=== PATIENT | female | born 1985 | race Caucasian/White ===

== ENCOUNTER 2022-12-15 20:38 | Outpatient (REF) | payer OTHER, SELFPAY ==
[2022-12-21 10:10] LABS: Age Gdln ACOG Testing Note (.); HPV Aptima Negative (Negative); IGP, Aptima HPV, rfx 16/18,45 Note (.)
== END 2022-12-15 20:39 | disposition home or self-care (01) ==
LOC: LAB 20:38
PROVIDERS: Visit Provider Physician Assistant
DX: Z01.419 Encounter for gynecological examination (general) (routine) without abnormal findings (principal)
CPT/HCPCS: 87624; G0145

== ENCOUNTER 2023-12-20 20:45 | Outpatient (REF) | payer OTHER, SELFPAY | END 2023-12-20 20:46 | disposition home or self-care (01) | LOC: LAB 20:45 | PROVIDERS: Visit Provider Obstetrics & Gynecology | DX: Z01.419 Encounter for gynecological examination (general) (routine) without abnormal findings (principal) | CPT/HCPCS: 87624; 88175 ==

== ENCOUNTER 2024-12-21 12:32 | Outpatient (REF) | payer OTHER, SELFPAY ==
--- OUTSIDE RECORDS SUMMARY | 2024-12-21 12:35 | XMS_ITS | Clinical Summary ---
Author Organization [facility] Address [address] [place] [address] Care Team Providers Care Vp Treasurer Name Role Phone Mamie Marina MD Primary Care Provider [phone] Allergies No known active allergies Medications NexIUM [address] capsule 20 mg. 3 Active levothyroxine (Synthroid, Levoxyl) 25 MCG tablet Take 25 mcg by mouth in the morning. 4 Active doxycycline (Doryx) 100 MG EC tabletIndications: Well woman exam with routine gynecological exam Take 1 tablet (100 mg) by mouth in the morning and 1 tablet (100 mg) before bedtime. Do all this for 14 days. Do not crush or chew. Take with a full glass of water and do not lie down for at least 30 minutes after. 28 tablet 5 01/05/20 25 Active Encounters Date Type Department Care Team Description 12/21/2024 10:00 AM EDT Office Visit [facility] [address] [place] [phone] Dutch Mishra, Well woman exam with routine gynecological exam; Pelvic pain in female 12/21/2024 Bamboo flowsheet [facility] [address] [place] [address] Dutch Mishra DO 12/20/2024 Travel from Last 3 Months Family History Medical History Relation Name Comments Growth hormone deficiency Brother yo bonifacio brother Asthma Child Diabetes Father Aden Hypertension Father Aden Diabetes Maternal Grandfather Rehan Diabetes Maternal Grandmother Anne Marie Hypertension Maternal Grandmother Anne Marie Allergic rhinitis Mother Diabetes Paternal Grandfather Rehan S Heart disease Paternal Grandfather Rehan S Relation Name Status Comments Brother 2 Child Father Aden Maternal Grandfather Rehan Maternal Grandmother Anne Marie Mother Paternal Grandfather Rehan S Social History Tobacco Use Types Packs/Day Years Used Date Smoking Tobacco: Never Smokeless Tobacco: Never Tobacco Cessation:Counseling Given: Not Answered Alcohol Use Standard Drinks/Week Comments Yes 1 (1 standard drink = 0.6 oz pur e alcohol) Caffeine intake: none Comments No Sex and Gender Information Value Date Recorded Sex Assigned at Female 12/14/2022 2:37 PM EDT Legal Sex Female 7:36 PM EDT Gender Identity Female 12/14/2022 2:37 PM EDT Sexual Orientation Not on file Last Filed Vital Signs Vital Sign Reading Time Taken Comments Blood Pressure 110/60 12/21/2024 10:13 AM EDT Pulse - - Temperature - - Respiratory Rate - - Oxygen Saturation - - Inhaled Oxygen Concentration - - Weight 79.7 kg (175 lb 12.8 oz) 025 10:13 AM EDT Height 152.4 cm (5') 12/20/2023 11:33 AM EDT Body Mass Index 34.33 12/20/2023 11:33 AM EDT Plan of Treatment Upcoming Encounters Date Type Department Care Team (Late st Contact Info) Description 12/24/2025 9:00 AM EDT Procedure Visit [facility] [address] [facility] [place] [phone] Dutch Mishra DO [address] [place] [address] Procedures Procedure Name Priority Date/Time Associated Diagnosis Comments POCT URINALYSIS DIPSTICK Routine 12/21/2024 10:22 AM EDT Pelvic pain in female POCT , URINE Routine 12/21/2024 10:21 AM EDT Pelvic pain in female from Last 3 Months Results * POCT urinalysis dipstick manually resulted (12/21/2024 10:22 AM EDT) Color, UA Yellow Clarity, UA Clear Glucose, UA Negative Negative - 2000(110) ++++ mg/dL Bilirubin, UA Negative Negative - 4(70) +++ mg/dL Ketones, UA Negative Negative - 160(16) ++++ mg/dL Spec Grav, UA 1.020 1 - 1.03 Blood, UA Negative Negative - 50 Marcelo/mcL pH, UA 6.5 5 - 9 Protein, UA Negative Negative - 1999(20) ++++ mg/dL Urobilinogen, UA 1.0 0.2 - 12 mg/dL Leukocytes, UA Negative Negative - 500+++ Supriya/mcL Nitrite, UA Negative Negative - Positive Urine 12/21/2024 10:2 2 AM EDT Dutch Tad DO POINT OF CARE TEST ENTER/EDIT OR DERABLES Final Result * POCT , urine manually resulted (12/21/2024 10:21 AM EDT) Preg Test, Ur Negative Negative Urine 12/21/2024 10:2 1 AM EDT Dutch Tad DO POINT OF CARE TEST ENTER/EDIT OR DERABLES Final Result from Last 3 Months Insurance [employer] Care Teams Vp Treasurer Relationship Specialty Start Date End Date Mamie Marina MD [address] [place] [phone] PCP - General Family Medicine 12/15/22
--- OUTSIDE RECORDS SUMMARY | 2024-12-21 12:35 | XMS_ITS | Encounter Summary ---
Author Organization [facility] Address [address] [place] [address] Care Team Providers Care Player Development Manager Name Role Phone Mamie Marina MD Primary Care Provider [phone] Encounter Details Date Type Department Care Team (Late Contact Info) Description 12/21/2024 Bamboo flowsheet [facility] [address] [place] [address] Dutch Mishra DO [address] [facility] [address] [place], [facility] Social History Tobacco Use Types Packs/Day Years Used Date Smoking Tobacco: Never Smokeless Tobacco: Never Alcohol Use Standard Drinks/Week Comments Yes 1 (1 standard drink = 0.6 oz pur e alcohol) Caffeine intake: none Comments No Sex and Gender Information Value Date Recorded Sex Assigned at Female 12/14/2022 2:37 PM EDT Legal Sex Female 7:36 PM EDT Gender Identity Female 12/14/2022 2:37 PM EDT Sexual Orientation Not on file documented as of this encounter Plan of Treatment Upcoming Encounters Date Type Department Care Team (Late Contact Info) Description 12/24/2025 9:00 AM EDT Procedure Visit [facility] [address] [place] [address] Dutch Mishra DO [address] [place], [facility] documented as of this encounter Visit Diagnoses Not on filedocumented in this encounter Care Teams Player Development Manager Relationship Specialty Start Date End Date Mamie Marina MD [address] [place] [address] PCP - General Family Medicine 12/15/22 documented as of this encounter
--- OUTSIDE RECORDS SUMMARY | 2024-12-21 12:35 | XMS_ITS | Encounter Summary ---
Author Organization [facility] Address [address] [place] [address] Care Team Providers Care Marine Meteorologist Name Role Phone Mamie Marina MD Primary Care Provider [phone] Encounter Details Date Type Department Care Team (Late Contact Info) Description 12/14/2022 Abstract [facility] [address] [facility] [address] Lanette Lazaro PA [address] [facility] [address] [place], [place] [address] Social History Tobacco Use Types Packs/Day Years Used Date Smoking Tobacco: Never Tobacco Cessation:Counseling Given: Not Answered Alcohol Use Standard Drinks/Week Comments Yes 1 (1 standard drink = 0.6 oz pur e alcohol) Caffeine intake: none Comments Unknown Sex and Gender Information Value Date Recorded Sex Assigned at Female 12/14/2022 2:37 PM EDT Legal Sex Female 7:36 PM EDT Gender Identity Female 12/14/2022 2:37 PM EDT Sexual Orientation Not on file documented as of this encounter Plan of Treatment Upcoming Encounters Date Type Department Care Team (Late Contact Info) Description 12/24/2025 9:00 AM EDT Procedure Visit [facility] [address] [place], [place] [address] [place] [address] Dutch Mishra DO [address] [facility] [place] [address] documented as of this encounter Visit Diagnoses Not on filedocumented in this encounter Care Teams Marine Meteorologist Relationship Specialty Start Date End Date Mamie Marina MD [address] [place] [phone] PCP - General Family Medicine 12/15/22 documented as of this encounter
--- OUTSIDE RECORDS SUMMARY | 2024-12-21 12:35 | XMS_ITS | Encounter Summary ---
[facility] Address [id number] [address] [place] [address] Care Team Providers Care Phys Therapist Name Role Phone Mamie Marina APRN-FOUNDRY PROCESS ENGINEER Primary Care Provider [phone] Encounter Details Date Type Department Care Team (Late st Contact Info) Description 04/11/2024 Orders Only [facility] [address] [place] [phone] Cira Bardales, SCIENCE INTERN Rubén's thyroiditis Social History Tobacco Use Types Packs/Day Years Used Date Smoking Tobacco: Never Smokeless Tobacco: Never Alcohol Use Standard Drinks/Week Comments Not Currently 0 (1 standard drink = 0.6 oz pur e alcohol) 1 beer month Childcare Answer Date Recorded Childcare Unknown 10/26/2018 Employment Answer Date Recorded Employment Unknown 10/26/2018 Purpose - Life Answer Date Recorded Purpose and direction in life Unknown Comments No Sex and Gender Information Value Date Recorded Sex Assigned at Not on file Legal Sex Female 11:31 AM EDT Gender Identity Not on file Sexual Orientation Not on file documented as of this encounter Plan of Treatment Upcoming Encounters Date Type Department Care Team (Late Contact Info) Description 02/20/2025 11:00 AM EDT Office Ultrasound [facility], A Department of [facility] [address] [place] [phone] Margaret Hector MD [address] [place] [address] documented as of this encounter Procedures Procedure Name Priority Date/Time Associated Diagnosis Comments T3, FREE Routine 04/04/2024 Rubén's thyroiditis TSH Routine 04/04/2024 Rubén's thyroiditis T4, FREE Routine 04/04/2024 Rubén's thyroiditis documented in this encounter Results * TSH (04/04/2024) External Tsh 0.925 0.270 - 4.200 SUNQUEST 04/04/2024 Margaret Hector MD LAB BLOOD ORDERABLES Fi nal Result Performing Organization Address [facility] de Phone Number SUNQUEST * T4, free (04/04/2024) External T4 Free 1.29 0.80 - 1.90 SUNQUEST 04/04/2024 us Margaret Hector MD LAB BLOOD ORDERABLES Fi nal Result Performing Organization Address [place]/[facility] Co de Phone Number SUNQUEST * T3, free (04/04/2024) External T3 Free 142 80 - 200 SUNQUEST 04/04/2024 us Margaret Hector MD LAB BLOOD ORDERABLES Fi nal Result Performing Organization Address [facility] Co de Phone Number SUNQUEST documented in this encounter Visit Diagnoses Diagnosis Rubén's thyroiditis Chronic lymphocytic thyroiditis documented in this encounter Additional Health Concerns Assessment Noted Time A Body Mass Index follow-up plan has been documented for the patient 03/24/2018 9:09 AM EST documented as of this encounter Care Teams Phys Therapist Relationship Specialty Start Date End Date Mamie Marina APRN-DANIEL [address] [place] [address] PCP - General Family Medicine 07/24/24 documented as of this encounter
--- OUTSIDE RECORDS SUMMARY | 2024-12-21 12:35 | XMS_ITS | Encounter Summary ---
Author Organization [facility] Address [address] [place] [address] Care Team Providers Care Bomb Technician Name Role Phone Mamie Marina MD Primary Care Provider [phone] Encounter Details Date Type Department Care Team (Latest Contact Info) Description 12/20/2024 Travel Social History Tobacco Use Types Packs/Day Years [...] 12/24/2025 9:00 AM EDT Procedure Visit [facility] [address] [facility] [place] [phone] Dutch Mishra DO [address] [place], [facility] documented as of this encounter Visit Diagnoses Not on filedocumented in this encounter Care Teams Bomb Technician Relationship Specialty Start Date End Date Mamie Marina MD [address] [place] [phone] PCP - General Family Medicine 12/15/22 documented as of this encounter
--- OUTSIDE RECORDS SUMMARY | 2024-12-21 12:36 | XMS_ITS | Clinical Summary ---
Author Organization [facility] Address [address] [place] [address] Care Team Providers Care Foam Charger Name Role Phone Unavailable Primary Care Provider Unavailabl e Allergies No known active allergies Medications esomeprazole (NEXIUM) 20 mg capsule Take 1 capsule by mouth every afternoon. 04/02/2023 Active Active Problems No known active problems Social History Tobacco Use Types Packs/Day Years Used Date Smoking Tobacco: Never Assessed Comments Unknown Sex and Gender Information Value Date Recorded Sex Assigned at Not on file Legal Sex Female 1:00 PM EDT Gender Identity Not on file Sexual Orientation Not on file Plan of Treatment Health Maintenance Due Date Last Done Comments Anxiety Screening 01/08/2004 Depression Screening 01/08/2004 HIV Screening 01/08/2004 Hepatitis C Screening 01/08/2004 Cervical Cancer Screening 2007 Influenza Vaccine (#1) 2025 9, 03/14/2019, 02/14/2019, Additional history exists DTaP,Tdap,Td Vaccine (7 - Td or Tdap) 03/06/2031 03/06/2021, 10/26/1997, 01/30/1991, Additional history exists Hepatitis B Vaccine Completed 11/28/1998, 12/18/1997, 11/15/1997 Insurance [facility] PPO
--- OUTSIDE RECORDS SUMMARY | 2024-12-21 12:36 | XMS_ITS | Clinical Summary ---
Author Organization [facility] Address [facility] [id number] [address] [place] [address] Care Team Providers Care Equipment Analyst Name Role Phone Mamie Marina APRN-STRATEGIC SOURCING CONSULTANT Primary Care Provider Allergies No known active allergies Medications levothyroxine (SYNTHROID, LEVOTHROID) 25 MCG tabletIndication s:Rubén's thyroiditis Take 1 tablet (25 mcg total) by mouth in the morning. 30 tablet 11 04/07/2024 Active pantoprazole (PROTONIX) 40 mg EC tablet Take 1 tablet (40 mg total) by mouth in the morning and at bedtime. 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 Acquired hypothyroidism 03/24/2018 Overview (03/24/2018): Takes synthroid Infertility, female 11/04/2017 Encounters Date Type Department Care Team Description 10/05/2024 Refill [facility] [address] [place] [phone] Hunter Narvaez DO from Last 3 Months Immunizations Immunization Administration Dates Next Due Rabies - Im Fibroblast Culture 03/06/2021 Rabies Immune Globulin 03/05/2021 Tdap 03/06/2021 Family History Medical History Relation Name Comments Diabetes Father Aden Varela High Cholesterol Father Aden Varela Diabetes Maternal Grandfather Rehan Ortega Diabetes Maternal Grandmother Anne Marie Bangura No Known Problems Mother Diabetes Paternal Grandfather Rehan Alfaroer Diabetes Paternal Grandmother Relation Name Status Comments Father Aden Varela Alive Maternal Grandfather Rehan Ortega Maternal Grandmother Anne Marie Bangura Mother Alive Paternal Grandfather Rhean Varela Paternal Grandmother Social History Tobacco Use Types Packs/Day Years Used Date Smoking Tobacco: Never Smokeless Tobacco: Never Tobacco Cessation:Counseling Given: Not Answered Alcohol Use Standard Drinks/Week Comments Not Currently 0 (1 standard drink = 0.6 oz pur e alcohol) 1 beer month Childcare Answer Date Recorded Childcare Unknown 10/26/2018 Employment Answer Date Recorded Employment Unknown 10/26/2018 Hunger Screening Answer Date Recorded Within the past 12 months we worried whether our food would run out before we got money to buy more. Never True 07/11/2024 Within the past 12 months th e food we bought just didn't last and we didn't have money to get more. Never True 07/11/2024 Purpose - Life Answer Date Recorded Purpose and direction in life Unknown Comments No Sex and Gender Information Value Date Recorded Sex Assigned at Not on file Legal Sex Female 11:31 AM EDT Gender Identity Not on file Sexual Orientation Not on file Last Filed Vital Signs Vital Sign Reading Time Taken Comments Blood Pressure 102/78 07/24/2024 10:43 AM EDT Pulse 73 07/24/2024 10:43 AM EDT Temperature 36.9 C (98.5 F) 07/24/2024 9:07 AM EDT Respiratory Rate 15 07/24/2024 10:43 AM EDT Oxygen Saturation 98% 07/24/2024 10:43 AM EDT Inhaled Oxygen Concentration - - Weight 81.6 kg (180 lb) 07/24/2024 9:07 AM EDT Height 152.4 cm (5') 07/24/2024 9:07 AM EDT Body Mass Index 35.15 07/24/2024 9:07 AM EDT Plan of Treatment Upcoming Encounters Date Type Department Care Team (Late st Contact Info) Description 02/20/2025 11:00 AM EDT Office Ultrasound [facility] A Department of [facility] [address] [phone] Margaret Hector MD [address] [facility] [place], [place] [id number] Health Maintenance Due Date Last Done Comments Depression Screening 1998 Adult BMI Follow Up Plan 01/08/2004 Pap Smear 03/09/2019 03/09/2016 Influenza Vaccine 01/15/2025 03/14/2019, , 02/18/2018 Adult BMI Screening 07/24/2025 07/24/2024 Tobacco Screening 07/24/2025 07/24/2024 DTaP,Tdap and Td Vaccines (7 - Td or Tdap) 03/06/2031 03/06/2021, 10/26/1997, 01/30/1991, Additional history exists Medical Devices Not on file Procedures Procedure Name Priority Date/Time Associated Diagnosis Comments HIGH RISK HPV W/[place] Routine 03/09/2016 12:00 PM EDT from Last 3 Months or Most Recently Relevant to Health Maintenance Results * High risk HPV w/austin (03/09/2016 12:00 PM EDT) Hpv specimen type ThinPrep 03/13/2016 6:32 PM EDT SUNQUEST Hpv 16 Negative Negative 03/18/2016 7:31 AM EDT [facility] Hpv 18 Negative Negative 03/18/2016 7:31 AM EDT [facility] Other high risk hpv Negative Negative 03/18/2016 7:31 AM EDT [facility] Comment: HPV types 31,33,35,39,45,52,56,58,59,66 and 68 DNA were undetectable. 03/09/2016 12:0 0 PM EDT 03/13/2016 6:31 PM EDT us Es L Chavo ELECTRIC MOTOR WINDERS ASSEMBLER-CNM LAB BLOOD ORDERABLES Final Result [facility] [address] [place] [address], [place] SUNQUEST from Last 3 Months or Most Recently Relevant to Health Maintenance Insurance [employer] Care Teams Equipment Analyst Relationship Specialty Start Date End Date Mamie Marina APRN-DANIEL [address] [place] [phone] PCP - General Family Medicine 07/24/24
[2024-12-25 19:07] LABS: Age Gdln ACOG Testing Note (.); IGP, Aptima HPV, rfx 16/18,45 Note (.)
== END 2024-12-21 12:33 | disposition home or self-care (01) ==
LOC: LAB 12:32
PROVIDERS: Visit Provider Obstetrics & Gynecology
DX: Z01.419 Encounter for gynecological examination (general) (routine) without abnormal findings (principal)
CPT/HCPCS: 87624; 88175

== ENCOUNTER 2025-04-20 12:30 | Outpatient (OUT) | payer OTHER, SELFPAY ==
--- OUTSIDE RECORDS SUMMARY | 2025-04-20 12:35 | XMS_ITS | Clinical Summary ---
Author Organization [facility] Address [address] [place] [address] Care Team Providers Care Pool Nurse Name Role Phone Mamie Marina MD Primary Care Provider [phone] Allergies No known active allergies Medications MedicationSigDispense QuantityRefillsLast FilledStart DateEnd DateStatus NexIUM [address] capsule 20 mg.12/08/2022ctive levothyroxine (Synthroid, Levoxyl) 25 MCG tablet Take 25 mcg by mouth in the morning.04/07/2024ctive Active Problems ProblemNoted DateDiagnosed DatePelvic pain in kozkuw1703/19/2025 Encounters DateTypeDepartmentCare UaizDbqkqygrmun07/20/2025 10:40 AM ESTConsult [facility]IS MAR[facility]Z [address] [place] [address] [place] [address] Dutch Mishra DO Pre-op examination; Pelvic pain in female; Thickened mmxmdsejfxf43/20/2025ambtorrey flowsheet [facility] [place] [address] Dutch Mishra DO 03/19/2025 3:50 [place] [address] Dutch Mishra DO Pelvic pain in sexcoa0503/19/2025ambtorrey flowsheet [facility] [place] [address] Dutch Mishra DO 03/06/2025 8:00 AM EDTAncillary Procedure [facility] [address] [facility] [place] [address] Pelvic pain in tpzlst1802/07/2025Telephone [facility] [address] [facility] [place] [phone] Dutch Mishra DO from Last 3 Months Family History Medical HistoryRelationNameCommentsGrowth hormone deficiencyBrotheryounger brotherAsthmaChildDiabetesFatherRonHypertensionFatherRonDiabetesMaternal GrandfatherBobDiabetesMaternal GrandmotherSandyHypertensionMaternal Grandmother SandyAllergic rhinitisMotherDiabetesPaternal GrandfatherBob SHeart disease Paternal GrandfatherBob DTxrhmyxvZcvlFxfeqlSqysbsfvZrzjxhs4WxomyAphhhvHgz Maternal GrandfatherBobMaternal GrandmotherSandyMotherPaternal GrandfatherBob S Social History Tobacco UseTypesPacks/DayYears UsedDateSmoking Tobacco: NeverSmokeless Tobacco: Never Tobacco Cessation:Counseling Given: Not Answered Alcohol UseStandard Drinks/WeekCommentsYes1 (1 standard drink = 0.6 oz pure alcohol)Caffeine intake: noneCommentsNoSex and Gender InformationValue Date RecordedSex Assigned at XjthhQoynia54/31/2023 2:37 PM EDTLegal SexFemale 07/29/2022 7:36 PM EDTGender XvcgghzzItbxxs32/31/2023 2:37 PM EDTSexual OrientationNot on file Last Filed Vital Signs Vital SignReadingTime TakenCommentsBlood Pockxqey780/6004/05/2025 10:37 AM EST Pulse--Temperature--Respiratory Rate--Oxygen Saturation--Inhaled Oxygen Concentration--Dkgqml38.2 kg (179 lb)04/05/2025 10:37 AM TZJRumvmd607.4 cm (5') 12/20/2023 11:33 AM EDTBody Mass Index34.9612/20/2023 11:33 AM EDT Plan of Treatment DateTypeDepartmentCare Team (Latest Contact Info)Wdmhwpybrnl30/29/2025 9:30 AM ESTOffice Visit [facility] [address] [facility] [place] [address] Maya Pablo, RADHA [address] [place] [address] 12/24/2025 9:00 AM EDTProcedure Visit [facility] [address] [facility] [place] [address] Dutch Mishra, DO [address] [place] [address] Procedures Procedure NamePriorityDate/TimeAssociated DiagnosisCommentsUS PELVIC COMPLETE W/ KPHoulllz18/21/2025 8:23 AM EDT Pelvic pain in female from Last 3 Months Results * US Pelvis w/ TV (03/06/2025 8:23 AM EDT)Anatomical RegionLateralityModality PelvisUltrasoundSpecimen (Source)Anatomical Location / LateralityCollection Method / VolumeCollection TimeReceived Time03/06/2025 2:37 PM EDT Impressions 03/06/2025 2:54 PM EDT 1. Endometrial thickening, polyp 2. Ovarian follicles. TRANSCRIBED BY: ? ELECTRONICALLY SIGNED BY: Alan Morgan MD Narrative 03/06/2025 2:54 PM EDT FINDINGS: Uterus ? 10.5 x 4.5 x 5.8 cm Endometrium ?15 mm (see below) Right ovary ?3.3 x 1.8 x 2.6 cm Left ovary ?3.6 x 2.3 x 2.9 cm Mild retroflexion of the uterine fundus. Normal myometrium. ??Unremarkable cervix. 15 mm hyperechogenic endometrium within the fundus surrounds a 6 x 11 x 13 mm hyperechogenic nodule, presumed polyp, no extension beyond the endometrium. Bilateral ovarian follicles/cysts, no pelvic fluid. Procedure Note Alan Morgan MD - 03/06/2025 FINDINGS: Uterus 10.5 x 4.5 x 5.8 cm Endometrium 15 mm (see below) Right ovary 3.3 x 1.8 x 2.6 cm Left ovary 3.6 x 2.3 x 2.9 cm Mild retroflexion of the uterine fundus. Normal myometrium. Unremarkablecervix. 15 mm hyperechogenic endometrium within the fundus surrounds a 6 x 11 x 13mm hyperechogenic nodule, presumed polyp, no extension beyond theendometrium. Bilateral ovarian follicles/cysts, no pelvic fluid. IMPRESSION: 1. Endometrial thickening, polyp 2. Ovarian follicles. TRANSCRIBED BY: ELECTRONICALLY SIGNED BY: Alan Morgan MD Authorizing ProviderResult TypeResult StatusCorey Tad DOIINSPIRE [facility] PROCEDURESFinal Result from Last 3 Months Insurance Care Teams Team MemberRelationshipSpecialtyStart DateEnd Date Mamie Marina MD [address] [place] [phone] PCP - GeneralFamily Medicine12/15/22
--- OUTSIDE RECORDS SUMMARY | 2025-04-20 12:35 | XMS_ITS | CCD ---
Author Organization [facility] Care Team Providers Care Employment Counselor Name Role Phone DR MT MISHRA Attending Unavailable TAD, DR AMOR Consulting Unavailable TAD, DR AMOR Primary Care Unavailable TAD, DR AMOR Admitting Unavailable Salas VP BIOLOGY-SUPERINTENDENT STEVEDORING, Mamie Primary Care Provider [phone] MARGARET GONZALEZ Attending Unavailab le SALAS, MAMIE Referring Unavailable SALAS, MAMIE Primary Care Unavailable JUDIE AMBROSIO Attending Unavailable SALAS, MAMIE Referring Unavailable SALAS, MAMIE Primary Care Unavailable Salas VP BIOLOGY-SUPERINTENDENT STEVEDORING, Mamie Primary Care Provider Mamie Marina MD Primary Care Provider LIZ CEJA Admitting Unavailable LIZ CEJA Attending Unavailable LIZ CEJA Referring Unavailable SALAS, MAMIE Primary Care Unavailable FELI EPSTEIN Referring Unavailable SALAS, MAMIE Primary Care Unavailable Salas CONVEYOR MAN-C, Mamie A Primary Care Unavailable Salas CONVEYOR MAN-C, Mamie A Primary Care Unavailable Salas CONVEYOR MAN-C, Mamie A Attending Unavailable Salas CONVEYOR MAN-C, Mamie A Primary Care Unavailable Salas CONVEYOR MAN-C, Mamie A Attending Unavailable Salas CONVEYOR MAN-C, Mamie A Attending Unavailable Salas CONVEYOR MAN-C, Mamie A Primary Care Unavailable MARGARET GONZALEZ Attending Unavailab le SALAS, MAMIE Referring Unavailable SALAS, MAMIE Primary Care Unavailable MARGARET GONZALEZ Referring Unavailab le SALAS, MAMIE Primary Care Unavailable Salas , Mamie Primary Care Provider [phone] MT MISHRA Attending Unavailable MT MISHRA Attending Unavailable Medications Current Medications MedicationDrug Class(es)DatesSig (Normalized)Sig (Original)doxycycline hyclate 100 mg delayed release oral tablet (4 sources)Tetracycline-class DrugStart: 12-21-2024 End: 46-81-4363bump 1 tablet by mouth in the morningdoxycycline (Doryx) 100 MG EC tablet Indications: Well woman exam with routine gynecological exam Take 1 tablet (100 mg) by mouth in the morning and 1 tablet (100 mg) before bedtime. Do all this for 14 days. Do not crush or chew. Take with a full glass of water and do not lie down for at least 30 minutes after. 28 tablet 12/21/2024 01/04/2025 Activeesomeprazole 20 mg delayed release oral capsule (8 sources)Proton Pump InhibitorStart: 56-91-4867HbeKSK [address] capsule 20 mg. 12/08/2022 Activelevothyroxine sodium 0.025 mg oral tablet (14 sources)l-ThyroxineStart: 04-07-2024 End: 28-28-7425gfvd 1 tablet by mouth in the morninglevothyroxine (Synthroid, Levoxyl) 25 MCG tablet Take 25 mcg by mouth in the morning. 04/07/2024 Active pantoprazole 40 mg delayed release oral tablet (6 sources)Proton Pump InhibitorStart: 30-50-2571wbqu 1 tablet by mouth at bedtimepantoprazole (PROTONIX) 40 mg EC tablet Take 1 tablet (40 mg total) by mouth in the morning and at bedtime. 60 tablet 1 07/24/2024 ActiveStart: 06-78-1334wxuu 1 tablet by mouth in the morningpantoprazole (PROTONIX) 40 mg EC tablet Take 1 tablet (40 mg total) by mouth in the morning. 12/12/2019 Activesod sulf-pot chloride-mag sulf 1.479-0.188- 0.225 gram tablet (1 source)Start: 49-82-8402yqg sulf-pot chloride-mag sulf 1.479-0.188- 0.225 gram tablet Indications: Change in bowel habits Please see instructional sheet given by physicians office. 24 tablet 07/11/2024 Active Problems Active Problems Problem ClassificationProblemDateDocumented DateEpisodic/ChronicAbdominal pain (6 sources)Pain in female pelvis; Translations: [Pelvic and perineal pain]Onset: 470612-33-0795UfuycknkVbtlbyu and circulatory congenital anomalies (6 sources)Single umbilical artery; Translations: [Congenital absence and hypoplasia of umbilical artery]Onset: 179413-72-3451SghthiiDncvmxcwnp disorders (2 sources)Gastroesophageal reflux disease; Translations: [Gastro-esophageal reflux disease without esophagitis]Onset: 895236-37-8717NmwfwunEsmwis infertility (6 sources)Female infertility; Translations: [Female infertility, unspecified] Onset: 210550-51-7556WcfascpIhzpysyyj and duodenitis (1 source)Chronic superficial gastritis without bleeding; Translations: [Chronic superficial gastritis without bleeding]Onset: 32-28-5617EtewcenNkqivifnihxpg and screening for infectious disease (1 source)Encounter for screening for human papillomavirus (HPV); Translations: [ENC SCREENING HUMAN PAPILLOMAVIRUS]Onset: 97-35-1293LfqpfdcfVevjxwqlcya deficiencies (2 sources)Vitamin D deficiency; Translations: [Vitamin D deficiency, unspecified]Onset: 215632-76-5406LqzqmivHohiz gastrointestinal disorders (1 source)Altered bowel function; Translations: [Change in bowel habit] 54-96-6963LmtefbreNkagq gastrointestinal disorders (1 source)Change in bowel habit; Translations: [Change in bowel habit]Onset: 92-60-1852ZiacqnbrSgsxe gastrointestinal disorders (1 source)HeartburnOnset: 32-86-0513YrhmswojAuubn nervous system disorders (1 source)Unspecified speech disturbances; Translations: [Unspecified speech disturbances]Onset: 81-47-4207UkglpvkrHunri screening for suspected conditions (not mental disorders or infectious disease) (4 sources)Encounter for screening for malignant neoplasm of cervix; Translations: [ENC SCREENING MALIG NEOPLASM CERV]Onset: 30-52-2111Unkcrxdh Thyroid disorders (20 sources)Acquired hypothyroidism; Translations: [Hypothyroidism, unspecified] Onset: 751396-22-7424SuqvwnzFkgbmgatugqp (1 source)New PatientOnset: 05-65-6337Wwrquxspuchp (1 source)gastroesophageal reflux, change in bowel habitsOnset: 07-24-2024 Unclassified (1 source)Thyroid ProblemOnset: 26-35-6575Russciyvsocw (1 source)UltrasoundOnset: 02-20-2025 Past or Other Problems Problem ClassificationProblemDateDocumented DateEpisodic/ChronicGastroduodenal ulcer (except hemorrhage) (1 source)Acute gastric ulcer without hemorrhage or perforation; Translations: [Acute gastric ulcer without hemorrhage or perforation]Onset: 27-17-8321Vgnyfiil Hemorrhoids (1 source)Residual hemorrhoidal skin tags; Translations: [Residual hemorrhoidal skin tags]Onset: 29-68-1366OajtgcmxEmshamdqdigh (6 sources)Onset: Results Test NameValueInterpretationReference RangeFacilityUS PELVIC COMPLETE W/ TVon 44-77-5313YU PELVIC COMPLETE W/ TVFINDINGS: Uterus 10.5 x 4.5 x 5.8 cm Endometrium 15 mm (see below) Right ovary 3.3 x 1.8 x 2.6 cm Left ovary 3.6 x 2.3 x 2.9 cm Mild retroflexion of the uterine fundus. Normal myometrium. Unremarkable cervix. 15 mm hyperechogenic endometrium within the fundus surrounds a 6 x 11 x 13 mm hyperechogenic nodule, presumed polyp, no extension beyond the endometrium. Bilateral ovarian follicles/cysts, no pelvic fluid. IMPRESSION: 1. Endometrial thickening, polyp 2. Ovarian follicles. TRANSCRIBED BY: ELECTRONICALLY SIGNED BY: Jose Alberto TomasNot AvailableComment on above:Order Comment: US PELVIS-TRANSVAG IF INDICATED No LMP recorded.Ultrasound thyroid w/wo biopsyon 99-10-4331RjeGaqaadWooster Community HospitalRadiology Study observation (narrative)[facility]oster Community HospitalMR BRAIN W WO CONTon 41-22-0647QT BRAIN W WO CONTMR BRAIN W WO CONT HISTORY: A 40-year-old female with a history of the speech abnormality and blurred vision in the right eye. TECHNIQUE: Multiplanar and multisequence MRI examination of brain is performed without and with intravenous contrast administration. COMPARISON: None available . FINDINGS: The ventricular system is normal in size and configuration. There is normal differentiation of tabor and white matters. Diffusion-weighted study demonstrates no evidence of restricted diffusion to suggest acute or subacute age of infarction. There is no evidence of intracranial mass, hemorrhage or acute pathology. The cerebellum and brainstem are unremarkable. No mass effect, midline shift of the structures or extra-axial fluid collections are noted. Postcontrast examination reveals no abnormal meningeal or parenchymal enhancement. Both distal internal carotid and vertebrobasilar arteries are patent. Dural venous sinuses are patent. Visualized paranasal sinuses and mastoid air cells are clear. IMPRESSION: Unremarkable MRI of brain without and with intravenous contrast. Finalized by Blake Mathias MD on 02/15/2025 5:04 PMNormalProMedica San Leandro HospitalOutside Recordson 21-97-5061Rhadqbv Records [id number]#1.00OTGTWadsworth-Rittman Hospital Outside Recordson 83-85-3452Kdbewjz Records [id number]#1.00OTGTWadsworth-Rittman Hospital Outside [id number]#1.00OTGTAshtabula County Medical CenterIGP,APTIMA HPV,AGE GDLNon 95-75-4989SMP GDLN ACOG TESTINGNote. NOMS HealthcareComment on above:TESTS RESULT FLAG UNITS REF RANGE LAB Clinician Provided Cytology Information Source.............Cervix;Endocervix No. of containers..01 ThinPrep Vial Age Algo ACOG Monique... 31- FLAG LEGEND: L-Low Normal,H-High Normal,LL-Alert Low,HH-Alert High <-Panic Low,>-Panic High,A-Abnormal,AA-Critical Abnormal Performed at: 01 =[address] [address] Erin Ely MD, HPV APTIMANegativeNegativeNOMS HealthcareComment on above:This nucleic acid amplification test detects fourteen high- risk HPV types (16,18,31,33,35,39,45,51,52,56,58,59,66,68) without differentiation. Performed at: =[address] [id number] Glass Maker: Erin Ely MD, Phone: [phone] Performed at: [address] [id number] Glass Maker: Erin Ely MD, Phone: [phone] IGP, APTIMA HPV, RFX 16/18,45Note.NOMS HealthcareComment on above:TESTS RESULT FLAG UNITS REF RANGE LAB DIAGNOSIS: 02 NEGATIVE FOR INTRAEPITHELIAL LESION OR MALIGNANCY. Specimen adequacy: 02 Satisfactory for evaluation. Endocervical and/or squamous metaplastic cells (endocervical component) are present. Performed by: 02 Lanette Sher, Parcel Post Weigher (ASCP) . 02 Note: Note 02 The Pap smear is a screening test designed to aid in the detection of premalignant and malignant conditions of the uterine cervix. It is not a diagnostic procedure and should not be used as the sole means of detecting cervical cancer. Both false-positive and false-negative reports do occur. Test Methodology: Note 02 This liquid based ThinPrep(R) pap test was screened with the use of an image guided system. HPV Genotype Reflex Note 02 Criteria not met, HPV Genotype not performed. FLAG LEGEND: L-Low Normal,H-High Normal,LL-Alert Low,HH-Alert High <-Panic Low,>-Panic High,A-Abnormal,AA-Critical Abnormal Performed at: 02 [facility] [address] [address] Erin Ely MD, BRUSH-SPATULA CERVIX ENDOCERVIX CLINISYNCNOMS HealthcareRECURRENT VAGINITIS (HTRX)on 91-64-3600ROTBAEUYS VAGINAE 0NOMS HealthcareATOPOBIUM VAGINAENot detectedNOMS HealthcareBVAB 2,3 (BACTERIAL VAGINOSIS ASSOCIATED BACTERIA 2, 3); MOBILUNCUS PZS6SMCJ HealthcareBVAB 2,3 (BACTERIAL VAGINOSIS ASSOCIATED BACTERIA 2, 3); MOBILUNCUS SPPNot detectedNOMS HealthcareCANDIDA ALBICANS, PARAPSILOSIS, BDNFJMBEXH1RCRD HealthcareCANDIDA ALBICANS, PARAPSILOSIS, TROPICALISNot detectedNOMS HealthcareCANDIDA GLABRATA0 NOMS HealthcareCANDIDA GLABRATANot detectedNOMS HealthcareCANDIDA GNLRLH2FTZM HealthcareCANDIDA KRUSEINot detectedNOMS HealthcareCHLAMYDIA TMDWKCYJQWN8YPBZ HealthcareCHLAMYDIA TRACHOMATISNot detectedNOMS HealthcareERMB, C; MEFA24.206 AbnormalNOMS HealthcareERMB, C; MEFADetectedAbnormalNOMS HealthcareGARDNERELLA RQADVMSLV99.777AbnormalNOMS HealthcareGARDNERELLA VAGINALISDetectedAbnormalNOMS HealthcareInterpretation and review of laboratory resultsAbnormalNOMS Healthcare MEGASPHAERA (TYPES 1, 2)0NOMS HealthcareMEGASPHAERA (TYPES 1, 2)Not detectedNOMS HealthcareMYCOPLASMA QANRRAIUTM8IWKG HealthcareMYCOPLASMA GENITALIUMNot detected NOMS HealthcareNEISSERIA VHIEPJVSSWP5AAWJ HealthcareNEISSERIA GONORRHOEAENot detectedNOMS HealthcareTRICHOMONAS HHBEBPIZD8CJLE HealthcareTRICHOMONAS VAGINALISNot detectedNOMS HealthcareNOMS HealthcareHCG ( test) Ql (U)on 61-04-8259Zzomfrnnccelay and review of laboratory resultsNormalNOMS Healthcare Preg Test, UrNegativeNegativeNOMS HealthcareNOMS HealthcareUrinalysis macro (dipstick) panel (U)on 08-25-9074Tmohhfdvt, UANegativeNegative - 4(70) +++ mg/dL NOMS HealthcareBlood, UANegativeNegative - 50 Marcelo/mcLNOMS HealthcareClarity, UA ClearNOMS HealthcareColor, UAYellowNOMS HealthcareGlucose, UANegativeNegative - 2000(110) ++++ mg/dLNOMS HealthcareInterpretation and review of laboratory resultsNormalNOMS HealthcareKetones, UANegativeNegative - 160(16) ++++ mg/dLNOMS HealthcareLeukocytes, UANegativeNegative - 500+++ Supriya/mcLNOMS HealthcareNitrite, UANegativeNegative - PositiveNOMS HealthcarepH, UA6.55 - 9N[facility] Healthcare Protein, UANegativeNegative - 2000(20) ++++ mg/dLNOMS HealthcareSpec Grav, UA 1.021 - 1.03NOMS HealthcareUrobilinogen, UA1.00.2 - 12 mg/dLNOMS HealthcareNOMS HealthcareOutside Recordson 44-23-3445Ypemqbu Records [id number]#1.00OTGTIFFBucyrus Community Hospital PYLORI SCREENon 07-24-2024H. pylori Org specific cx Ql (Radha fld)NegativeNormal NEGMedina HospitalComment on above:Performed By: #### [id number] #### [facility] ([id number]) [address] [place] [address], [address] [place], [place] [address]Xvejlbwf Pathologyon 36-67-5564Vauyxzgb PathologyNoUC West Chester HospitalComment on above:Result Comment: [facility] [address] [place] [address] Surgical Pathology Consultation Patient Name:COLLIN ARORA:1985 (Age: 39)Gender:FTaken:07/24/2024Reported:08/01/2024Physician(s):Liz Ceja D.O. ([phone])Copy To: Rec. #:[id number]: #[id number] Final Pathologic Diagnosis 1. Gastric antrum, biopsy: Mild chronic inactive gastritis. No Helicobacter pylori organisms seen on H&E stain. Comment: Confirmatory immunostain for Helicobacter pylori organisms is performed with appropriate control and is negative. 2. Distal esophagus, biopsy: Fragments of esophageal squamous and gastric???like mucosa with no diagnostic abnormalities. No chronic reactive inflammation, eosinophilia, metaplasia or dysplasia identified. Report Electronically Signed Out nxk/08/01/2024Flo Valenzuela MD Interpretation [place] [address], License number: [id number]. Clinical History Gastroesophageal reflux, change in bowel habits. Gross Description 1. Received in formalin labeled SHIELA, antrum biopsy , are 2 ruiz tissue bits 0.1 cm and 0.3 cm in greatest dimension. The specimen is filtered and submitted entirely in a single cassette. (1,ns,[id number], m1) SW 2. Received in formalin labeled SHIELA, distal esophagus biopsy , are 3 ruiz- white feathery tissuebits 0.3 cm - 0.4 cm. The specimen is filtered and submitted entirely in a single cassette. (1,ns,[id number], m1) SW sxw/07/25/2024NSK Specimen(s) Received 1: Antrum biopsy 2: Distal esophageal biopsy Fee Codes(s): 1; 19979, 51768 2; 67907Hxpwnta Recordson 01-79-7960Mmglljg Records [id number]#1.00[facility] Outside Recordson 63-14-2324Qfezsnz Records [id number]#1.00OTMer[facility] Health [facility] Outside Recordson 63-06-0653Iuxcvgl Records [id number]#1.00[facility] Outside Recordson 04-28-1509Hhcacth Records [id number]#1.00[facility] Cytology Cervical or vaginal smear or scraping studyOrdered By: Nayla Kaur on 32-24-3748ZRHEPershing Memorial Hospital ACOG PANEL 2: 30 to 65on 11-19-2021..NormalThe Henry County HospitalComment on above:Result Comment: Performed at: WBPerformed By: #### [id number] #### [facility] [address] [address] [address] González CallowayAge Gdln ACOG Uwswoat02-14GbolnvQetAshtabula General HospitalComment on above:Performed By: #### [id number] #### [facility] [address] [address] [address] González CallowayDIAGNOSIS:CommentChillicothe Hospital on above: Result Comment: NEGATIVE FOR INTRAEPITHELIAL LESION OR MALIGNANCY. Performed at: WBPerformed By: #### [id number] #### [facility] [address] [address] [address] González CallowayHPV AptimaNegativeNormalNegativeHolzer Medical Center – JacksonCommemorial healthcare on above:Result Comment: This nucleic acid amplification test detects fourteen high-risk HPV types (16,18,31,33,35,39,45,51,52,56,58,59,66,68) without differentiation. Performed at: =GPerformed By: #### [id number] #### [facility] [address] [address] [address] González CallowayMethodology:CommentChillicothe Hospital on above: Result Comment: This liquid based ThinPrep(R) pap test was screened with the use of an image guided system. Performed at: WBPerformed By: #### [id number] #### [facility] [address] [place] [address] Dr. González CallowayNote:CommentChillicothe Hospital on above:Result Comment: The Pap smear is a screening test designed to aid in the detection of premalignant and malignant conditions of the uterine cervix. It is not a diagnostic procedure and should not be used as the sole means of detecting cervical cancer. Both false-positive and false-negative reports do occur. . Performed at: WBPerformed By: #### [id number] #### [facility] [address] [place] [address] Dr. González CallowayPerformed by:CommentChillicothe Hospital on above: Result Comment: Letty Yadav Acid Conditioning Worker Performed at: WBPerformed By: #### [id number] #### [address] [address] [address] González CallowaySpecimen adequacy:CommentChillicothe Hospital on above:Result Comment: Satisfactory for evaluation. Endocervical and/or squamous metaplastic cells (endocervical component) are present. Performed at: WBPerformed By: #### [id number] #### [facility] [address] [place] [address] Dr. González Calloway Vital Signs Date TimeVital SignValuePerforming GtmfzyflxVqnvianv05-02-8832 15:42-0500Body mass index (BMI) [Ratio]35.98 kg/p9Mvmel [employer] Work Phone: [facility] CenterRjfhifwnyo94-30-9392 15:42-0500Body vuarpk88.58 kgCorey Intelligroup Work Phone: [facility] CenterAkqnhownxi24-01-2994 15:42-0500Diastolic blood ypnjskkp52 mm[Hg]MtStellarray Work Phone: [facility] CenterRftngjrhis06-95-7998 15:42-0500Systolic blood thovrgpt333 mm[Hg]Mt [employer] Work Phone: [address] [address]Jvycxmjaih42-67-9757 10:57-0400Body .4 cmMargaret Gonzalez MD Work Phone: [phone]10-07-2025 10:57-0400Body mass index (BMI) [Ratio]34.55 kg/j9VpvdtlxMargaret Gonzalez MD Work Phone: [phone]10-07-2025 10:57-0400Body oefhbn84.24 kgMargaret Gonzalez MD Work Phone: [phone] [place], [place] 479[address]10-07-2025 10:57-0400Diastolic blood hzduvfwj55 mm[Hg]Margaret Gonzalez MD Work Phone: [phone] [place], [place] [address]-07-2025 10:57-0400Heart rate 64 /minMargaret Gonzalez MD Work Phone: [phone] [place], [place] [address]-07-2025 10:57-0400Systolic blood wrgemddx800 mm[Hg]Margaret Gonzalez MD Work Phone: [phone] [place], [place] 4790408-07-2025 10:13-0400Body mass index (BMI) [Ratio]34.33 kg/e2Ulayw Tad DO Work Phone: [facility] CenterMdxdmnfxep61-71-9137 10:13-0400Body jpabdy99.74 kgCorey Tad DO Work Phone: [facility] CenterDxgdpcueym83-78-2218 10:13-0400Diastolic blood uhjhiocw86 mm[Hg]Mt Tad DO Work Phone: [facility] CenterHsygwnjwue68-29-9777 10:13-0400Systolic blood nyuwysqf716 mm[Hg]Mt Tad DO Work Phone: [facility] CenterRjovmhfiig85-75-2632 14:51-0500Body ytdvew514.4 cmJudie ROTH Work Phone: [facility]02-25-2025 14:51-0500Body mass index (BMI) [Ratio]35.23 kg/q9XtzqqqoJudie Ambrosio VP BIOLOGY-SUPERINTENDENT STEVEDORING Work Phone: [facility]02-25-2025 14:51-0500Body thtbif89.83 kgJudie Ambrosio VP BIOLOGY-SUPERINTENDENT STEVEDORING Work Phone: [facility]02-25-2025 14:51-0500Diastolic blood hmcavkyn57 mm[Hg]Judie Ambrosio VP BIOLOGY-SUPERINTENDENT STEVEDORING Work Phone: [facility]02-25-2025 14:51-0500Heart rate 64 /minJudie Ambrosio VP BIOLOGY-SUPERINTENDENT STEVEDORING Work Phone: [facility]02-25-2025 14:51-0500Systolic blood mm[Hg]Judie Ambrosio VP BIOLOGY-SUPERINTENDENT STEVEDORING Work Phone: [facility]11-22-2024 13:01-0500Body mass index (BMI) [Ratio]40.33 kg/c0PnskziwMargaret Gonzalez MD Work Phone: [phone] [place], [place] 5700311-22-2024 13:01-0500Body jpmske63.67 kgMargaret Gonzalez MD Work Phone: [phone] [place], [place] 5700311-22-2024 13:01-0500Diastolic blood hawgfbkq51 mm[Hg]Margaret Gonzalez MD Work Phone: [phone] [place], [place] 57[address]11-22-2024 13:01-0500Heart rate 61 /minMargaret Gonzalez MD Work Phone: [phone] [place] [address] [employer] Voiolh49-98-4329 13:01-0500Systolic blood hugtrzbp089 mm[Hg]Margaret Gonzalez MD Work Phone: [phone] [place] [address] Encounters Encounter DateEncounter TypeCare ProviderFacilityStart: 03-19-2025 End: 02-11-8262Tcihsk outpatient visit 15 minutesCorey Tad DO Work Phone: [facility] OBGYNComment on above:Pelvic pain in femaleStart: 03-19-2025 End: 16-42-9359fleysrqxpgRDCVT FAZIONot AvailableStart: 03-19-2025 End: 53-35-8685Njoajo flowsheetCorey Tad DO Work Phone: [facility] [place] OBGYNStart: 03-19-2025 End: 43-42-4812Kuhtwy flowsheetCorey Tad DO Work Phone: [facility] [place] OBGYNStart: 03-06-2025 End: 93-51-9151xchdvqqxbcIPICD FAZIONot AvailableStart: 02-20-2025 End: 26-13-3887Kcldoq outpatient visit 25 minutesMargaret Gonzalez MD Work Phone: [facility], A Department of [facility] HospitalComment on above:Nontoxic nodular goiter (Primary Dx); Rubén's thyroiditisStart: 02-20-2025 End: 03-57-2896umnbiifojsYIZFPAOShannan COPELANDSt. Elizabeth Hospital HospitalStart: 76-38-0800dyfebfcpakMhlr A Salas CONVEYOR MAN-CFacility:[facility] CLINICStart: 02-12-2025 End: 32-32-5415zdaqokahqbAMWEII L LOWEProMedica Fremont HospitalStart: 58-40-6490xdbjidwuzdNaab A Salas CONVEYOR MAN-CFacility:[facility] CLINICStart: 12-21-2024 End: 04-72-7240Yrvozr flowsheetCorey Tad DO Work Phone: [facility] OBGYNStart: 12-21-2024 End: 97-70-2897Rfuurd flowsheetCorey Tad DO Work Phone: [facility] OBGYNStart: 12-21-2024 End: 43-58-1148Ojchskwuc Result EncounterCorey Tad DO Work Phone: [facility] External Department UnsolicitedStart: 12-21-2024 End: 90-35-4423Wwviayqw Result EncounterCorey Tad DO Work Phone: [facility] External Department UnsolicitedStart: 12-21-2024 End: 56-44-4972Bcqigei encounter procedureCorey Tad DO Work Phone: [facility] Work Phone: Start: 12-21-2024 End: 18-69-6702Tfslwpif preventive med est patient 18-39 yrsCorey Tad DO Work Phone: NO[facility] [place] OBGYNComment on above:Well woman exam with routine gynecological exam; Pelvic pain in femaleStart: 12-21-2024 End: 00-04-1339kbepmptyjjRRICQ FAZIONot AvailableStart: 10-05-2024 End: 97-85-9953TirncqXtsprya E Grillis DO Work Phone: [facility] Physicians General SurgeryStart: 08-24-2024 End: 78-16-0899pewwcpwcvxCtqz A Salas CONVEYOR MAN-CFacility:[facility] HospitalStart: 08-03-2024 End: 12-09-0030Dmdwuoqba encounterEva Keith [facility] Physicians General SurgeryStart: 07-24-2024 End: 71-45-1251Gtytjeaqgj and management of inpatientMICHAEL E GRILLISProMedica Lester HospitalStart: 07-11-2024 End: 48-33-7206Povabv outpatient new 30 minutesJudie Ambrosio VP BIOLOGY-SUPERINTENDENT STEVEDORING Work Phone: [facility] Physicians General SurgeryComment on above: Change in bowel habits (Primary Dx); Gastroesophageal reflux disease, unspecified whether esophagitis presentStart: 00-05-6612agtwjhhshpQENVQAQ A CARROLLOhioHealth [facility]erington [facility] Ambulatory PPGStart: 06-20-2024 End: 48-91-1053Vlcfuqhfn encounterJudie Ambrosio VP BIOLOGY-SUPERINTENDENT STEVEDORING Work Phone: [facility] Physicians General SurgeryStart: 06-19-2024 ambulatoryLisa A Salas CONVEYOR MAN-CFacility:[facility] CLINICStart: 04-07-2024 End: 34-41-2306Iqnjba consultation new/estab patient 61 Alexandre Gonzalez MD Work Phone: p[facility] Adult EndocrinologyComment on above:Rubén's thyroiditis (Primary Dx); Nontoxic nodular goiter; Vitamin D deficiencyStart: 04-07-2024 End: 80-72-8136dcstdpltstMOGGHNC [facility]ISETTSum[facility] Start: 05-07-2023 End: 03-22-9268aocoleiiewFqhwltml:[facility] Hospitaltart: 11-14-2021 End: 78-07-2198zwplsalyrqHI COREY FAZIOFacility: Procedures DateProcedureProcedure DetailPerforming ClinicianStart: 49-84-2619EK AMB THYROID W/WO BIOPSYMargaret Gonzalez MD Work Phone: start: 43-70-2423FNIBITJMH VAGINITIS (HTRX)Mt Tad DO Work Phone: Start: 12-21-2024 End: 38-09-3566Rbvkp dip stick/tablet rgnt non-auto w/o micrscpCorey Tad DO Work Phone: Start: 47-03-4013SAK,APTIMA HPV,AGE GDLNCorey Tad DO Work Phone: Start: 09-06-1253Vjdyqtdjbls observation [Identifier] in Cervix by Cyto Kenroy Gonzalez MD Work Phone: start: 07-71-3601Ybhj cerv/vag auto thin layer prep mnl screenCorey Tad DO Work Phone: Start: 53-82-6214Ifijipobska observation [Identifier] in Cervix by Marcos Gonzalez MD Work Phone: Plan of Treatment DateCare ActivityDetailAuthorStart: 99-49-1626DUwR,Tdap and Td Vaccines (7 - Td or Tdap)DTaP,Tdap and Td Vaccines (7 - Td or Tdap)[facility] Centertart: 34-01-9420Rzofjshtd for malignant neoplasm of cervixPap SmearNovant Health Thomasville Medical Centertart: 02-21-2026 End: 31-88-0838Zrlgkiw encounter piqelibbi56/08/2026 8:00 AM EDT Office Visit [facility] Adult Endocrinology, A Department of [facility] [address] [place] [address] Margaret Gonzalez MD [address] [place] [address] [facility] Adult Endocrinology, A Department of [facility] Start: 73-75-2174Clwic BMI ScreeningAdult BMI ScreeningWooster Community Hospital Start: 41-34-8798Dxsthqk ScreeningTobacco ScreeningNovant Health Thomasville Medical Centertart: 01-21-2026 End: 11-33-9762Uzafhnkjtcx [Units/volume] in Serum or PlasmaTSH Lab Routine Rubén's thyroiditis Expected: 01/21/2026 (Approximate), Expires: 02/20/2026 [facility] Work Phone: comment on above:Expected: 01/21/2026 (Approximate), Expires: 02/20/2026Start: 01-21-2026 End: 27-46-2601Iuwuwewym (T4) free [Mass/volume] in Serum or PlasmaT4, free Lab Routine Rubén's thyroiditis Expected: 01/21/2026 (Approximate), Expires: 02/20/2026[facility] HospitalComment on above:Expected: 01/21/2026 (Approximate), Expires: 02/20/2026Start: 01-21-2026 End: 56-95-2852Vtgyksfqdkyucuaf (T3) Free [Mass/volume] in Serum or PlasmaT3, free Lab Routine Rubén's thyroiditis Expected: 01/21/2026 (Approximate), Expires: 02/20/2026[facility] SystemComment on above:Expected: 01/21/2026 (Approximate), Expires: 02/20/2026Start: 12-24-2025 End: 00-48-9597Dxtzupf encounter fyykuoaqn98/10/2026 9:00 AM EDT Procedure Visit LUIS MARQUEZ [address] [place] [address] Mt Mishra, DO [address] [place] [address] NOMWaylon Garcia OBGYNStart: 59-85-3977Ldsdr BMI ScreeningAdult BMI ScreeningProJackson Hospital Health SystemStart: 46-89-2129Zvtwxtd ScreeningTobacco ScreeningLakeHealth [facility] Health SystemStart: 34-92-4043Xywbu BMI ScreeningAdult BMI ScreeningProJackson Hospital Health SystemStart: 66-40-5792Ridfnqz ScreeningTobacco ScreeningLakeHealth [facility] Health SystemStart: 77-02-3407Tnzvq BMI ScreeningAdult BMI ScreeningProCherrington Hospitalca Health SystemStart: 22-97-7451Hjnwcsb ScreeningTobacco ScreeningLakeHealth [facility] Health SystemStart: 04-04-2025 End: 37-56-9868Ssxaowh encounter rywnwvlcd47/19/2025 3:00 PM EST Consult LUIS MARQUEZ [address] [place] [address] Mt Mishra, DO [address] [place] [address] NOMWaylon Garcia OBGYNStart: 03-19-2025 End: 81-05-6466Qcokpdd encounter aqsqrctno22/03/2025 3:50 PM EST Office Visit LUIS MARQUEZ [address] [place] [phone] Mt Mishra, DO [address] [place] [place] [address] ArrivedNOMS Garcia OBGYNComment on above:ArrivedStart: 02-20-2025 End: 99-89-9570jqsaknpygz46/07/2025 11:00 AM EDT Office Ultrasound [facility] Adult Endocrinology, A Department of [facility] [address] [place] [address] Margaret Gonzalez MD [address] [place] [address] [facility] Adult Endocrinology, A Department of [facility]ertart: 95-99-3569Rxjqvyqeh vaccinationInfluenza VaccineTrinity Health [facility] Campus SystemStart: 12-21-2024 End: 02-07-4008Yxdbwoe encounter pukoqfbdp42/07/2025 10:00 AM EDT Office Visit NOMS Radha HOLTGYN [address] [place] [address] Mt Mishra DO [address] [place] [address] ArrivedNOMS Garcia OBGYNComment on above:ArrivedStart: 08-29-2024 End: 13-33-2517inkiektwonFlyAaynni Adult Endocrinology, [facility] HospitalStart: 07-24-2024 End: 07-24-0801Xzxmhfvbswk [Units/volume] in Serum or PlasmaTSH Lab Routine Rubén's thyroiditis Expected: 07/24/2024 (Approximate), Expires: 04/07/2025 [facility] SystemComment on above:Expected: 07/24/2024 (Approximate), Expires: 04/07/2025Start: 07-24-2024 End: 95-77-3661Zgljhgmte (T4) free [Mass/volume] in Serum or PlasmaT4, free Lab Routine Rubén's thyroiditis Expected: 07/24/2024 (Approximate), Expires: 04/07/2025[facility] HospitalComment on above:Expected: 07/24/2024 (Approximate), Expires: 04/07/2025Start: 07-24-2024 End: 96-56-7870Ghcazvpsgetfywzc (T3) Free [Mass/volume] in Serum or PlasmaT3, free Lab Routine Rubén's thyroiditis Expected: 07/24/2024 (Approximate), Expires: 04/07/2025[facility] SystemComment on above:Expected: 07/24/2024 (Approximate), Expires: 04/07/2025Start: 07-24-2024 End: 86-72-1641Mtbqqjwst to same day surgery gxlifj7807/24/2024 11:00 AM EDT - 07/24/2024 11:45 AM EDT Surgery [address] [phone] [place] [address] [place] [address] [phone] ESOPHAGOGASTRODUODENOSCOPY DIAGNOSTIC [36726 (CPT )][facility] CenterComment on above:ESOPHAGOGASTRODUODENOSCOPY DIAGNOSTIC [94980 (CPT )]Start: 07-24-2024 End: 50-28-4681Wpkdgmyknaj flx dx w/collj spec when pfrmdCOLONOSCOPY DIAGNOSTIC / SCREENING gastroesophageal reflux, change in bowel habits 07/24/2024 11:00AM EDTFREMFREEMAN CANCER INSTITUTE SURGERYStart: 07-24-2024 End: 75-77-2571Jhvvcflqlreivxptcozfvgikgu transoral diagnostic ESOPHAGOGASTRODUODENOSCOPY DIAGNOSTIC gastroesophageal reflux, change in bowel habits 07/24/2024 11:00 AM EDTFREMFREEMAN CANCER INSTITUTE SURGERYStart: 86-67-9389Alkijfslkk hospital visit by pcvqjsete01/10/2025 11:00 AM EDT Hospital Encounter [facility] Surgery [address] [place] [phone] Liz Ceja, DO [address] [place] [address] [facility] - SurgeryStart: 07-18-2024 End: 39-84-9889rgpssxxknr95/04/2025 3:10 PM EST Support Visit [facility] Admit [address] [place] [address] [facility] - Pre AdmitStart: 07-11-2024 End: 24-65-8230Pvmaoft encounter khctircrh20/25/2025 3:00 PM EST Office Visit [facility] General Surgery [id number] Judie Ambrosio, VP BIOLOGY-SUPERINTENDENT STEV[employer]ORING [address] [address] [facility] General SurgeryStart: 16-40-7468Pzfhqroby vaccinationInfluenza VaccineNovant Health Thomasville Medical Centertart: 44-77-3456Wmimgiupi for malignant neoplasm of cervixPap SmearNovant Health Thomasville Medical Centertart: 55-27-2211Gawxo BMI Follow Up PlanAdult BMI Follow Up PlanNovant Health Thomasville Medical Centertart: 57-28-7792Keullukehh ScreeningDepression ScreeningWooster Community Hospital End: 52-51-8424Emfrm metabolic 2000 panel - Serum or PlasmaBasic Metabolic Panel Lab Routine Vitamin D deficiency 1 Occurrences starting 04/07/2024 until 04/07[facility] Work Phone: comment on above:1 Occurrences starting 04/07/2024 until 04/07/2025HLAMYDIA TRACHOMATIS (GENITO/STI)CHLAMYDIA TRACHOMATIS (GENITO/STI) Lab Routine Pelvic pain in female Ordered: 12/21/2024NOW[facility] HealthcareComment on above:Ordered: 12/21/2024 End: 56-21-0396QuxmnjlanhxDcpzfxosieh GI Routine Change in bowel habits 1 Occurrences starting 07/11/2024 until 07/11/2025[facility] SystemComment on above:1 Occurrences starting 07/11/2024 until 07/11/2025ytology Cervical or vaginal smear or scraping studyPap Smear Pathology and Cytology Routine Well woman exam with routine gynecological exam Ordered: 12/21/2024[facility] Work Phone: comment on above:Ordered: 12/21/2024 End: 77-12-8940RumyxxbibpgndtqrhhtedppjowFEG GI Routine Gastroesophageal reflux disease, unspecified whether esophagitis present 1 Occurrences starting 07/11/2024 until 07/11/2025[facility] Work Phone: Comment on above:1 Occurrences starting 07/11/2024 until 07/11/2025Human papilloma virus DNA [Presence] in Unspecified specimen by Probe with amplificationHPV DNA probe, amplified Microbiology Routine Well woman exam with routine gynecological exam Ordered: 12/21/2024[facility] HealthcareComment on above:Ordered: 12/21/2024Neisseria gonorrhoeae DNA [Presence] in Unspecified specimen by BRITTANY with probe detectionNeisseria gonorrhea DNA probe, direct Lab Routine Pelvic pain in female Ordered: 12/21/2024[facility] CenterComment on above:Ordered: 12/21/2024SURESWAB(R) ADVANCED VAGINITIS PLUS, TMASURESWAB(R) ADVANCED VAGINITIS PLUS, TMA Pathology and Cytology Routine Pelvic pain in female Ordered: 12/21/2024[facility] CenterComment on above:Ordered: 12/21/2024 Vitamin D 25 hydroxyVitamin D 25 hydroxy Lab Routine Vitamin D deficiency Ordered: 04/07/2024[facility] HospitalComment on above:Ordered: 04/07/2024 Immunizations Immunization DateImmunizationNotesCare EtusqmewVsflvqpf00-07-4293Gohjh rabies vaccine from Chicken fibroblast cultureMargaret Gonzalez MD Work Phone: p[facility] Memorial HospitalSuyozq03-97-2276ojaefsh toxoid, reduced diphtheria toxoid, and acellular pertussis vaccine, adsorbedMargaret Gonzalez MD Work Phone: p[facility]10-20-2021rabies immune globulinMargaret Gonzalez MD Work Phone: p[facility] HospitalXifrww84-95-5428zefdwniat virus vaccine, unspecified formulationMargaret Gonzalez MD Work Phone: [facility] Payers DatePayer CategoryPayerPolicy [id number] Care Other (unspecified) [employer] [id number] Health Insurance [id number] 2..1.620765.3.57[id number] 2.0.1.460908.3.57[id number] 2.0.1.297850.3.57[id number] 2..1.199503.3.57[id number] 2..1.365916.3.57[id number] 2..1.681630.3.57[id number] 2..1.912959.3.57[id number] 2.0.1.513491.3.57[id number] 2.16.840.1.619647.3.57[id number] 2.16.840.1.489648.3.57[id number] 2.16.840.1.820910.3.57[id number] 2..840.1.641084.3.57[id number] 2.16.840.1.333215.3.57[id number] Social History DateTypeDetailFacilityStart: 03-10-2017 End: 62-11-4061Lsklzll smoking status NHISNever smoked tobaccoTrinity Health System West Campus SystemStart: 03-10-2017 End: 20-98-5650Jxnjuxi use and exposureSmokeless tobacco non-userTrinity Health System West Campus SystemStart: 04-07-2024 End: 34-30-5393Jdiwdxdqn beverage intakeEx-drinker (finding)[facility] SystemStart: 04-07-2024 End: 93-16-2572Ptvkmsa of Social functionTrinity Health System West Campus SystemStart: 04-07-2024 End: 01-45-7532Roqufsh use panelTrinity Health System West Campus SystemStart: 07-29-2022 ChildcareUnknowWyandot Memorial Hospital SystemStart: 11-63-8570Pwxavjs Comment1 beer monthTrinity Health System West Campus SystemStart: 86-26-6154Xqp assigned at birthNot on file [facility] SystemStart: 55-73-9611TmzQfglmr (finding)[facility] SystemStart: 12-20-2023 End: 31-59-8125Cgzldfgpf beverage intakeCurrent drinker of alcohol (finding)[facility] HealthcareStart: 23-19-6722Rckzzgo CommentCaffeine intake: noneNOMS Healthcare Start: 39-97-9118Wzd assigned at birthFemaleNOMS HealthcareStart: 12-14-2022 Gender identityIdentifies as female gender (finding)[facility] Clinical Notes 05-07-2023 to 03-19-2025 Note Date & KeqrWhypApsrdryj88-90-5534 History of Present illness Narrative* Elena Balderrama, TIRE CENTER MANAGER - 03/19/2025 3:50 PM EST Reason for Appointment: Patient ID: Collin Arora is a 40 y.o. female who presents for Follow-up Patient presents today for Follow up appointment to discuss results. MEDICATIONS Current Outpatient Medications Medication Instructions levothyroxine (SYNTHROID, LEVOXYL) 25 mcg, Daily RT NexIUM 20 mg ALLERGIES No Known Allergies PROBLEMS Active Ambulatory Problems Diagnosis Date Noted Pelvic pain in female 03/19/2025 Resolved Ambulatory Problems Diagnosis Date Noted No Resolved Ambulatory Problems Past Medical History: Diagnosis Date Anemia Rubén's thyroiditis Hypothyroidism Palpitations Urinary dysfunction HISTORY PAST MEDICAL HISTORY SOCIAL HISTORY Past Medical History: Diagnosis Date Anemia Rubén's thyroiditis Hypothyroidism Palpitations Urinary dysfunction Social History Tobacco Use Smoking status: Never Smokeless tobacco: Never Substance Use Topics Alcohol use: Yes Alcohol/week: 1.0 - 2.0 standard drink of alcohol Types: 1 - 2 Standard drinks or equivalent per week Comment: Caffeine intake: none Drug use: Never FAMILY HISTORY Family History Problem Relation Name Age of Onset Allergic rhinitis Mother Diabetes Father Aden Hypertension Father Aden Growth hormone deficiency Brother younger brother Hypertension Maternal Grandmother Anne Marie Diabetes Maternal Grandmother Anne Marie Diabetes Maternal Grandfather Rehan Diabetes Paternal Grandfather Rehan S Heart disease Paternal Grandfather Rehan S Asthma Child SURGICAL HISTORY Past Surgical History: Procedure Laterality Date SECTION, LOW TRANSVERSE 09/2015 failure to progress TUBAL LIGATION 02/09/20 WISDOM TOOTH EXTRACTION 2006 REVIEW OF SYSTEMS Review of Systems: Review of Systems Constitutional: Negative. HENT: Negative. Eyes: Negative. Respiratory: Negative. Cardiovascular: Negative. Gastrointestinal: Negative. Genitourinary: Positive for pelvic pain. Musculoskeletal: Negative. Skin: Negative. Neurological: Negative. All other systems reviewed and are negative. Hematological: Negative. Endocrine: Negative. Allergic/Immunologic: Negative. OBJECTIVE Objective: Physical Exam Constitutional: Appearance: Normal appearance. She is well-developed. Cardiovascular: Rate and Rhythm: Normal rate and regular rhythm. Pulmonary: Effort: Pulmonary effort is normal. Breath sounds: Normal breath sounds. Abdominal: General: Bowel sounds are normal. There is no distension. Palpations: Abdomen is soft. Tenderness: There is no abdominal tenderness. There is no guarding or rebound. Musculoskeletal: General: No swelling. Normal range of motion. Right lower leg: No edema. Left lower leg: No edema. Neurological: Mental Status: She is alert and oriented to person, place, and time. Skin: General: Skin is warm and dry. Psychiatric: Mood and Affect: Mood normal. Behavior: Behavior normal. Vitals and nursing note reviewed. Exam conducted with a client service supervisor present. Vitals: Estimated body mass index is 35.98 kg/m as calculated from the following: Height as of 24: 5'. Weight as of this encounter: 184 lb 4 oz. BP: 102/70 No LMP recorded. Assessment/Plan ICD-10-CM 1. Pelvic pain in female R10.20 Patient presents for results of ultrasound and management. Discussed with patient that since she tried doxycycline with no improvement. Patient had had Bilateral tubal ligation. Discussed Diagnostic Lap. Will have Dr. Mishra reach out to patient tomorrow to discuss procedure and will setup surgical date. Documented by Elena Balderrama LPN on behalf of: Lanette Lazaro PA-C documented in this encounterNortheast Regional Medical CenterHkfveqivpk75-30-4661 NoteUltrasound Examination of the Neck with Description of Thyroid Nodules: Procedure: US SOFT TISS HEAD NECK Reason for Exam: History of nodular goiter Comparison: None Technique: Real time sonography of the thyroid gland performed Right lobe: Measuring 3.83 x 1.30 x 2.0 cm Left lobe: Measuring 3.85 x 1.30 x 1.64 cm Thyroid Parenchyma: Heterogeneous with minimally increased vascularity without any discrete nodules ASSESSMENT AND PLAN: Minimally enlarged thyroid without any discrete nodules. Recommendations: No need for future ultrasounds unless clinically indicated. This note is dictated with the use of M*Modal.Please note that this dictation was completed with computer voice recognition software. Quite often unanticipated grammatical, syntax, homophones, and other interpretive errors are inadvertently transcribed by the computer software. Please disregard these errors. Please excuse any errors that have escaped final proofreading.Spotivate10-07-2025 History of Present illness Narrative* Margaret Gonzalez MD - 02/20/2025 11:00 AM EDT Reason for Visit: Collin Arora is a 40 y.o. female who is being seen today for the follow-up of her nodular goiter. History of Present Illness: She has Hashimotos thyroiditis and was on levothyroxine in the past. Levothyroxine was stopped in 2021 with normal labs. Has feeling of lump in her neck. Denies any compressive manifestations. Denies any history of neck radiation. Denies any family medical history of thyroid cancer or parathyroid or MEN syndromes Neck u/s from 10/2023 showed nodular goiter with 0.8 cm right thyroid nodule. Family history of thyroid disease: Yes Interim History: Taking levothyroxine 25 mcg daily Reports difficulty swallowing - here for the u/s Past Medical History: Diagnosis Date Abnormal Pap smear of cervix Disease of thyroid gland GERD (gastroesophageal reflux disease) 2015 HPV (human papilloma virus) infection Hypothyroid PONV (postoperative nausea and vomiting) Urinary dysfunction Past Surgical History: Procedure Laterality Date SECTION 10/12/2015 COLONOSCOPY DIAGNOSTIC / SCREENING N/A 07/24/2024 Performed by [facility] at [facility] ESOPHAGOGASTRODUODENOSCOPY DIAGNOSTIC N/A 07/24/2024 Performed by Liz Ceja DO at [facility] TUBAL LIGATION 02/08/20 Current Outpatient Medications: levothyroxine (SYNTHROID, LEVOTHROID) 25 MCG tablet, Take 1 tablet (25 mcg total) by mouth in the morning., Disp: 30 tablet, Rfl: 11 pantoprazole (PROTONIX) 40 mg EC tablet, Take 1 tablet (40 mg total) by mouth in the morning and atbedtime., Disp: 60 tablet, Rfl: 1 No Known Allergies Family History Problem Relation Age of Onset No Known Problems Mother High Cholesterol Father Diabetes Father Diabetes Maternal Grandmother Diabetes Maternal Grandfather Diabetes Paternal Grandmother Diabetes Paternal Grandfather Social History: reports that she has never smoked. She has never used smokeless tobacco. She reports that she does not currently use alcohol. She reports that she does not use drugs. Review of Systems: 12 systems were reviewed and were negative except for what has been mentioned above. Physical Exam: Vitals: 02/20/25 1057 BP: 126/88 Pulse: 64 Weight: 80.2 kg (176 lb 14.4 oz) Height: 152.4 cm (5') General appearance: Awake alert and oriented in no acute distress. HEENT: normocephalic, atraumatic. SKIN: no acanthosis nigricans noted on neck. HAIR: Normal facial hair growth, no hirsuitism. EYES: no exopthalmos present, extraocular movement intact (EOMI), no lid retraction noted, no chemosis. MOUTH/JAW: No lip enlargement, No widening of teeth spaces. NECK: Nodular goiter. CHEST: No nasal flaring, no cough. ABDOMEN: No injection site lipodystrophy. ACROMEGALIC EXTREMITY FEATURES are not present. EXTREMITIES: no edema. NEUROLOGIC: alert and oriented. Labs: TSH: Lab Results Component Value Date TSH 0.44 (L) 07/11/2019 Thyroid Imaging: Neck u/s from 10/2023 showed nodular goiter with 0.8 cm right thyroid nodule. Assessment/Plan: Collin Arora presents today for evaluation of her hashimotos thyroiditis and nodular goiter. 1. Rubén's thyroiditis (Primary) - Rubén's thyroiditis is an autoimmune condition which increases the risk of hypothyroidism over time. It is more common in women but can be seen in either gender and children of different ages. When TSH is normal we suggest at least annual TSH/FT4 labs to monitor for the onset of hypothyroidism. When TSH is elevated but below 10, the patient has the option to start levothyroxine if they havepositive antibodies and suggestive symptoms. If TSH is >10, we recommend treatment. Levothryoxine is the standard medication and is very safe and effective. Aragon thyroid is natural, dessicated porcine thyroid and is less preferred as pigs may have higher T3:T4 ratio than humans. Skbb-tsr-rqvl,this might be a suitable option for some families. - levothyroxine (SYNTHROID, LEVOTHROID) 25 MCG tablet; Take 1 tablet (25 mcg total) by mouth in themorning. Dispense: 30 tablet; Refill: 11 - Thyroid medication instructions: -Take the thyroid medication in the morning on an empty stomach (preferred method) -Do not take the thyroid medication at the same time as iron or soy containing products - Wait 2 hours before taking other meds like iron, calcium and mvt -If you forget one pill, take later in the day; or take 2 pills the next day to make up the missed dose - TSH; Future - T4, free; Future - T3, free; Future 2. Nontoxic diffuse goiter - enlarged thyroid without any nodules - no need for future ultrasounds unless clinically indicated Return to clinic: 1 year Margaret Gonzalez MD [facility] [address] [facility] [address] [facility] [address] Dept: [phone] documented in this encounterWooster Community Hospital08-07-2025 History of Present illness Narrative* VIDA Gonzales - 12/21/2024 10:00 AM EDT Reason for Appointment: Patient ID: Collin Arora is a 39 y.o. female who presents for Well Women Visit Patient presents today for Annual Exam. MEDICATIONS Current Outpatient Medications Medication Instructions levothyroxine (SYNTHROID, LEVOXYL) 25 mcg, Daily RT NexIUM 20 mg ALLERGIES No Known Allergies PROBLEMS Active Ambulatory Problems Diagnosis Date Noted No Active Ambulatory Problems Resolved Ambulatory Problems Diagnosis Date Noted No Resolved Ambulatory Problems Past Medical History: Diagnosis Date Anemia Rubén's thyroiditis Hypothyroidism Palpitations Urinary dysfunction HISTORY PAST MEDICAL HISTORY SOCIAL HISTORY Past Medical History: Diagnosis Date Anemia Rubén's thyroiditis Hypothyroidism Palpitations Urinary dysfunction Social History Tobacco Use Smoking status: Never Smokeless tobacco: Never Substance Use Topics Alcohol use: Yes Alcohol/week: 1.0 - 2.0 standard drink of alcohol Types: 1 - 2 Standard drinks or equivalent per week Comment: Caffeine intake: none Drug use: Never FAMILY HISTORY Family History Problem Relation Name Age of Onset Allergic rhinitis Mother Diabetes Father Aden Hypertension Father Aden Growth hormone deficiency Brother younger brother Hypertension Maternal Grandmother Anne Marie Diabetes Maternal Grandmother Anne Marie Diabetes Maternal Grandfather Rehan Diabetes Paternal Grandfather Rehan S Heart disease Paternal Grandfather Rehan S Asthma Child SURGICAL HISTORY Past Surgical History: Procedure Laterality Date SECTION, LOW TRANSVERSE 09/2015 failure to progress TUBAL LIGATION 02/09/20 WISDOM TOOTH EXTRACTION 2006 REVIEW OF SYSTEMS Review of Systems: Review of Systems Constitutional: Negative. HENT: Negative. Eyes: Negative. Respiratory: Negative. Cardiovascular: Negative. Gastrointestinal: Negative. Genitourinary: Negative. Musculoskeletal: Negative. Skin: Negative. Neurological: Negative. All other systems reviewed and are negative. Hematological: Negative. Endocrine: Negative. Allergic/Immunologic: Negative. OBJECTIVE Objective: Physical Exam Constitutional: Appearance: Normal appearance. Genitourinary: Right Adnexa: not tender and no mass present. Left Adnexa: not tender and no mass present. No cervical discharge. Breasts: Breasts are soft. Right: Normal. Left: Normal. HENT: Head: Normocephalic. Nose: Nose normal. Mouth/Throat: Mouth: Mucous membranes are moist. Cardiovascular: Rate and Rhythm: Normal rate. Pulmonary: Effort: Pulmonary effort is normal. Abdominal: General: Bowel sounds are normal. Palpations: Abdomen is soft. Musculoskeletal: General: Normal range of motion. Cervical back: Normal range of motion. Neurological: General: No focal deficit present. Mental Status: She is alert. Skin: General: Skin is warm and dry. Psychiatric: Mood and Affect: Mood normal. Vitals and nursing note reviewed. Exam conducted with a client service supervisor present. Vitals: Estimated body mass index is 34.33 kg/m as calculated from the following: Height as of 12/20/23: 5'. Weight as of this encounter: 175 lb 12.8 oz. BP: 110/60 Patient's last menstrual period was 12/04/2024. ASSESSMENT & PLAN ICD-10-CM 1. Well woman exam with routine gynecological exam Z01.419 Pap Smear HPV DNA probe, amplified 2. Pelvic pain in female R10.2 POCT , urine manually resulted SURESWAB(R) ADVANCED VAGINITIS PLUS, TMA CHLAMYDIA TRACHOMATIS (GENITO/STI) Neisseria gonorrhea DNA probe, direct POCT urinalysis dipstick manually resulted Annual Exam: Patient presents today for an annual exam. Patient states she is doing well with some pain with intercourse and tampon insertion. We discussed possibility of cervicitis. Pap was obtained without difficulty. We will place pt on 14 day course of doxcycline. If pain persists patient will call and US will be ordered Orders Placed This Encounter Procedures HPV DNA probe, amplified CHLAMYDIA TRACHOMATIS (GENITO/STI) Neisseria gonorrhea DNA probe, direct POCT , urine manually resulted POCT urinalysis dipstick manually resulted Follow Up: Patient is to return in one year for annual unless needed otherwise. Documented by VIDA Gonzales on behalf of: Mt Mishra DO documented in this encounterNortheast Regional Medical [phone] Miscellaneous Notes* Telephone Encounter - Eva Keith CMA - 08/03/2024 10:49 AM EDT ----- Message from Dr. Liz Ceja DO sent at 08/01/2024 12:27 PM EDT ----- Please call patient let her know that she had mild chronic gastritis and she should continue her pantoprazole. Otherwise she may follow up with me p.r.n.. Thanks, Dr. Miranda documented [facility] Telephone encounter Note* Telephone Encounter - Eva Keith CMA - 08/03/2024 10:49 AM EDT ----- Message from Dr. Liz Ceja DO sent at 08/01/2024 12:27 PM EDT ----- Please call patient let her know that she had mild chronic gastritis and she should continue her pantoprazole. Otherwise she may follow up with me p.r.n.. ThanksDr. Miranda [facility]02-25-[facility] History of Present illness Narrative* Judie Ambrosio, FABRICIO-DANIEL - 07/11/2024 3:00 PM EST Images from the original note were not included. Chief Complaint: Change in bowel habits, GERD History of Present Illness Collin Arora is a 39 y.o. female who presents to the office for changes in her bowel habits. Symptoms started 6 months ago. [facility] had diarrhea upon returning. This has since resolved. Now, she reports small and thin stools. She denies diarrhea but states her bowel movements are not the same. She also reports abdominal cramping and urgency. She either has 1 bowel movement daily or multiple. She also reports a hemorrhoid that flares up from time to timewith hematochezia. This usually occurs with increased wiping. She also reports GERD. She has frequent cough and throat clearing. She is on pantoprazole 40 mg daily. She reports nausea at night. She does not drink any caffeine. She does not smoke. Review of Systems Constitutional: Negative for fever and unexpected weight change. HENT: Negative for trouble swallowing. Respiratory: Negative for shortness of breath. Cardiovascular: Negative for chest pain. Gastrointestinal: Positive for nausea. Negative for vomiting, abdominal pain, diarrhea, constipation and blood in stool. GERD, change in bowel habits Genitourinary: Negative for dysuria and difficulty urinating. Musculoskeletal: Negative for gait problem. Skin: Negative for rash and wound. Neurological: Negative for dizziness, weakness and light-headedness. Hematological: Does not bruise/bleed easily. Psychiatric/Behavioral: Negative for confusion. Past Medical History: Diagnosis Date Abnormal Pap smear of cervix Disease of thyroid gland GERD (gastroesophageal reflux disease) 2015 HPV (human papilloma virus) infection Hypothyroid Urinary dysfunction Past Surgical History: Procedure Laterality Date SECTION 10/12/2015 TUBAL LIGATION 02/08/20 No Known Allergies Current Outpatient Medications: levothyroxine (SYNTHROID, LEVOTHROID) 25 MCG tablet, Take 1 tablet (25 mcg total) by mouth in the morning., Disp: 30 tablet, Rfl: 11 pantoprazole (PROTONIX) 40 mg EC tablet, Take 1 tablet (40 mg total) by mouth in the morning., Disp: , Rfl: sod sulf-pot chloride-mag sulf 1.479-0.188- 0.225 gram tablet, Please see instructional sheet givenby physicians office., Disp: 24 tablet, Rfl: 0 Social History Socioeconomic History Marital status: Spouse name: Not on file Number of children: Not on file Years of education: Not on file Highest education level: Not on file Occupational History Not on file Tobacco Use Smoking status: Never Smokeless tobacco: Never Vaping Use Vaping status: Never Used Substance and Sexual Activity Alcohol use: Not Currently Comment: 1 beer month Drug use: Never Sexual activity: Yes Partners: Male control/protection: None Other Topics Concern Not on file Social History Narrative Not on file Social Drivers of Health Financial Resource Strain: Not on file Food Insecurity: No Food Insecurity (07/11/2024) Hunger Screening Food Insecurity - Worry: Never True Food Insecurity - Inability: Never True Transportation Needs: Not on file Physical Activity: Not on file Stress: Not on file Social Connections: Not on file Interpersonal Safety: Not on file Housing Instability: Not on file Family History Problem Relation Age of Onset No Known Problems Mother High Cholesterol Father Diabetes Father Diabetes Maternal Grandmother Diabetes Maternal Grandfather Diabetes Paternal Grandmother Diabetes Paternal Grandfather Objective Physical Exam Constitutional: General: She is not in acute distress. Appearance: Normal appearance. She is not ill-appearing. HENT: Head: Normocephalic and atraumatic. Mouth/Throat: Mouth: Mucous membranes are moist. Eyes: Pupils: Pupils are equal, round, and reactive to light. Cardiovascular: Rate and Rhythm: Normal rate. Pulmonary: Effort: Pulmonary effort is normal. No respiratory distress. Abdominal: General: There is no distension. Musculoskeletal: General: Normal range of motion. Skin: General: Skin is warm and dry. Neurological: Mental Status: She is alert and oriented to person, place, and time. Mental status is at baseline. Vital Signs: Blood pressure 119/64, pulse 64, height 152.4 cm (5'), weight 81.8 kg (180 lb 6.4 oz),unknown if currently . Respiratory Source: No data recorded Admission Weight: Weight: 81.8 kg (180 lb 6.4 oz) Labs Lab Results Component Value Date WBC 6.3 01/22/2018 HGB 13.4 01/22/2018 HCT 40.3 01/22/2018 MCV 90 01/22/2018 PLT 263 01/22/2018 Lab Results Component Value Date GLU 105 (H) 01/22/2018 CALCIUM 9.0 01/22/2018 K 3.9 01/22/2018 CO2 26 01/22/2018 CL 105 01/22/2018 BUN 13 01/22/2018 CREATININE 0.85 01/22/2018 No results found for: AMYLASE No results found for: LIPASE Lab Results Component Value Date ALT 16 01/22/2018 AST 20 01/22/2018 ALKPHOS 49 01/22/2018 No results found for: INR , PROTIME Assessment Change in bowel habits GERD Plan Recommend adequate water intake, high-fiber diet and fiber supplement which she recently picked up. Schedule EGD and colonoscopy. Evaluation included: Preparing to see the patient (e.g., review of tests) Obtaining and/or reviewing separately obtained history Performing a medically appropriate examination and/or evaluation Counseling and educating the patient/family/caregiver Referring and communicating with other health hospice spiritual care coordinator Change in bowel habits [R19.4] IRA HSIEH [facility] Lester/Cordell This note was created with the assistance of a speech recognition program. While intending to generate a timely document that accurately reflects the content of the visit, no guarantee can be provided that every grammatical or spelling mistake has been or will be identified or corrected. Thank you for your understanding. IRA Hsieh 07/11/24 1523 IRA Hsieh 07/11/24 1524 documented in this encounterW[facility]02-04-2025 Miscellaneous Notes* Telephone Encounter - Nida Palafox - 06/20/2024 11:19 AM EST Called Collin regarding the GERD & change in bowel habits referral that our office received from Mamie Marina NP, left a message on her voicemail to call the office back to schedule an appointment. * Telephone Encounter - Nida Palafox - 06/20/2024 11:19 AM EST Collin called the office back and we scheduled her an appointment on 07/11/2024. documented in this encounterW[facility]02-04-2025 Telephone encounter Note* Telephone Encounter - Nida Palafox - 06/20/2024 11:19 AM EST Called Collin regarding the GERD & change in bowel habits referral that our office received from Mamie Marina NP, left a message on her voicemail to call the office back to schedule an appointment. [facility] Telephone encounter Note* Telephone Encounter - Nida Palafox - 06/20/2024 11:19 AM EST Collin called the office back and we scheduled her an appointment on 07/11/2024. [facility] History of Present illness Narrative* Margaret Gonzalez MD - 04/07/2024 1:00 PM EST Reason for Visit: Collin Arora is a 39 y.o. female who is being seen today in consultation at the request of IRA OROZCO for her nodular goiter. History of Present Illness: She has Hashimotos thyroiditis and was on levothyroxine in the past. Levothyroxine was stopped in 2021 with normal labs. Has feeling of lump in her neck. Denies any compressive manifestations. Denies any history of neck radiation. Denies any family medical history of thyroid cancer or parathyroid or MEN syndromes Neck u/s from 10/2023 showed nodular goiter with 0.8 cm right thyroid nodule. Family history of thyroid disease: Yes Past Medical History: Diagnosis Date Abnormal Pap smear of cervix Disease of thyroid gland HPV (human papilloma virus) infection Hypothyroid Urinary dysfunction Past Surgical History: Procedure Laterality Date SECTION 10/12/2015 Current Outpatient Medications: pantoprazole (PROTONIX) 40 mg EC tablet, Take 1 tablet (40 mg total) by mouth in the morning., Disp: , Rfl: No Known Allergies Family History Problem Relation Age of Onset High Cholesterol Father Diabetes Maternal Grandmother Diabetes Maternal Grandfather Diabetes Paternal Grandmother Diabetes Paternal Grandfather Social History: reports that she has never smoked. She has never used smokeless tobacco. She reports that she does not currently use alcohol. She reports that she does not use drugs. Review of Systems: 12 systems were reviewed and were negative except for what has been mentioned above. Physical Exam: Vitals: 04/07/24 1301 BP: 110/70 Pulse: 61 Weight: 93.7 kg (206 lb 8 oz) General appearance: Awake alert and oriented in no acute distress. HEENT: normocephalic, atraumatic. SKIN: no acanthosis nigricans noted on neck. HAIR: Normal facial hair growth, no hirsuitism. EYES: no exopthalmos present, extraocular movement intact (EOMI), no lid retraction noted, no chemosis. MOUTH/JAW: No lip enlargement, No widening of teeth spaces. NECK: Nodular goiter. CHEST: No nasal flaring, no cough. ABDOMEN: No injection site lipodystrophy. ACROMEGALIC EXTREMITY FEATURES are not present. EXTREMITIES: no edema. NEUROLOGIC: alert and oriented. Labs: TSH: Lab Results Component Value Date TSH 0.44 (L) 07/11/2019 Thyroid Imaging: Neck u/s from 10/2023 showed nodular goiter with 0.8 cm right thyroid nodule. Assessment/Plan: Collin Arora presents today for evaluation of her hashimotos thyroiditis and nodular goiter. 1. Rubén's thyroiditis (Primary) - Rubén's thyroiditis is an autoimmune condition which increases the risk of hypothyroidism over time. It is more common in women but can be seen in either gender and children of different ages. When TSH is normal we suggest at least annual TSH/FT4 labs to monitor for the onset of hypothyroidism. When TSH is elevated but below 10, the patient has the option to start levothyroxine if they havepositive antibodies and suggestive symptoms. If TSH is >10, we recommend treatment. Levothryoxine is the standard medication and is very safe and effective. Aragon thyroid is natural, dessicated porcine thyroid and is less preferred as pigs may have higher T3:T4 ratio than humans. [id number],this might be a suitable option for some families. - levothyroxine (SYNTHROID, LEVOTHROID) 25 MCG tablet; Take 1 tablet (25 mcg total) by mouth in themorning. Dispense: 30 tablet; Refill: 11 - Thyroid medication instructions: -Take the thyroid medication in the morning on an empty stomach (preferred method) -Do not take the thyroid medication at the same time as iron or soy containing products - Wait 2 hours before taking other meds like iron, calcium and mvt -If you forget one pill, take later in the day; or take 2 pills the next day to make up the missed dose - TSH; Future - T4, free; Future - T3, free; Future 2. Nontoxic nodular goiter - will schedule neck u/s next visit 3. Vitamin D deficiency - Basic Metabolic Panel; Future - Vitamin D 25 hydroxy Return to clinic: 4 months with u.s Margaret Gonzalez MD [facility] [address] [address] Dept: [phone] documented in this encounterWo[facility]11-14-2024 NoteReceived refill request from Tobias for Esomeprazole. Proposed to provider.. [Electronically Signed on: 03/30/2024 08:44 EST] Lanette Buck LPN [Verified on: 03/30/2024 08:44 EST] Lanette Buck LPWadsworth-Rittman Hospital12-22-2023 NoteHNO ID: [id number] Author: Walter Foster APRN.SUPERINTENDENT STEVEDORING Service: ? Author Type: Nurse Practitioner Type: Progress Notes Filed: 05/07/2023 12:14 PM Note Text: Telemedicine Evaluation for COVID-19 Infection MyChart Zoom Video Visit was used for evaluation of this patient. I have communicated my name and active licensure. The patient's identity and physical location were verified at the time of this visit. Either the patient or their legal claims customer service representative has been informed of the risks and benefits of -- and alternatives to -- treatment through a remote evaluation and consents to proceed with the evaluation remotely. MARGARET Arora is a 38 year old female who presents with 3 days of symptoms that are stable. Symptoms include: Fever (?100.4F): No or Chills: No Cough: No Shortness of breath: No or Difficulty breathing: No Fatigue: No Muscle aches: No Headache: No New loss of smell or taste: No Sore throat: No Nasal congestion: Yes or Rhinorrhea: Yes Nausea: No or Vomiting: No Diarrhea: No No cough but clearing her throat. Low grade fevers. OTC meds/remedies that patient has tried: acetaminophen and NSAIDs. High risk category assessment No high risk factors Exposures: Sick contacts? Yes Family or close contacts with confirmed/probable COVID-19 in last 14 days? No She has no history on file for tobacco use. OBJECTIVE VIDEO EXAM (if available) GENERAL: well appearing, alert, in no acute distress HEENT: no conjunctival injection, pupils equal and moist mucous membranes PULMONARY: breathing comfortably on room air , no coughing noted, and no wheezing noted ASSESSMENT/PLAN (J06.9) Viral upper respiratory tract infection with cough (primary encounter diagnosis) Most consistent with uncomplicated viral URI. Recommended continued symptomatic treatments. Walter Foster, VP BIOLOGY.SUPERINTENDENT STEVEDORING - Discussed symptom monitoring and supportive care - Red flag symptoms requiring follow up discussed Remove COVID19 associationClermont County HospitalEvaluation note* Diagnosis Rubén's thyroiditis- Primary Chronic lymphocytic thyroiditis Nontoxic nodular goiter Unspecified nontoxic nodular goiter Vitamin D deficiency [facility] Diagnosis Change in bowel habits- Primary Other symptoms involving digestive system Gastroesophageal reflux disease, unspecified whether esophagitis present documented [facility] this [facility]* Diagnosis Well woman exam with routine gynecological exam Routine gynecological examination Pelvic pain in female Unspecified symptom associated with female genital organs documented in this encounter [facility] note* Diagnosis Nontoxic nodular goiter- Primary Unspecified nontoxic nodular goiter Rubén's thyroiditis Chronic lymphocytic thyroiditis documented in this encounter [facility]* Diagnosis Pelvic pain in female Unspecified symptom associated with female genital organs documented in this encounter [facility] HealthcareInstructionsNot on filedocumented in this encounterProMedide Health SystemInstructionsNot on filedocumented in this encounterProMedica Health SystemInstructionsNot on filedocumented in this encounterProCherrington Hospitalca [facility] InstructionsNot on filedocumented in this encounterProMedide Health System InstructionsNot on filedocumented in this encounterProMedica Health System Summary Purpose Family History No Family History Records FoundNo Family History Records FoundNo Family History Records FoundNo Family History Records FoundNo Family History Records FoundNo Family History Records FoundNo Family History Records Found Advance Directives No Advanced Directives Records FoundNo Advanced Directives Records FoundNo Advanced Directives Records FoundNo Advanced Directives Records FoundNo Advanced Directives Records FoundNo Advanced Directives Records FoundNo Advanced Directives Records Found Additional Source Comments INFORMATION SOURCE (unrecogn ized section and content) DATE CREATED AUTHOR 11/19/2021 [facility] DATE CREATED AUTHOR AUTHOR'S ORGANIZ ATION 05/08/2023 [facility] DATE CREATED AUTHOR AUTHOR'S ORGANIZ ATION 07/25/2024 [facility] DATE CREATED AUTHOR AUTHOR'S ORGANIZ ATION 02/18/2025 [facility] DATE CREATED AUTHOR AUTHOR'S ORGANIZ ATION 02/19/2025 [facility] DATE CREATED AUTHOR AUTHOR'S ORGANIZ ATION 02/22/2025 [facility] DATE CREATED AUTHOR AUTHOR'S ORGANIZ ATION 03/20/2025 [facility] EPIC Care Teams (unrecognized sec tion and content) Team MemberRelationshipSpecialtyStart DateEnd Date Mamie Marina APRN-CNP PCP - GeneralFamily Medicine12/27/20Team MemberRelationshipSpecialtyStart DateEnd Date Mamie Marina APRN-CNP PCP - GeneralFamily Medicine12/27/20Team MemberRelationshipSpecialtyStart DateEnd Date Mamie Marina APRN-CNP PCP - GeneralFamily Medicine12/27/20Team MemberRelationshipSpecialtyStart DateEnd Date Mamie Marina APRN-SUPERINTENDENT STEVEDORING [address] [place] [phone] PCP - GeneralFamily Medicine07/24/24Team MemberRelationshipSpecialtyStart DateEnd Date Mamie Marina APRN-SUPERINTENDENT STEVEDORING [address] [place] [phone] PCP - GeneralFamily Medicine07/24/24Team MemberRelationshipSpecialtyStart DateEnd Date Mamie Marina MD [address] [place] [phone] PCP - GeneralFamily Medicine12/15/22Team MemberRelationshipSpecialtyStart DateEnd Date Mamie Marina MD [address] [place] [phone] PCP - GeneralFamily Medicine12/15/22Team MemberRelationshipSpecialtyStart DateEnd Date Mamie Marina MD [address] [place] [phone] PCP - GeneralFamily Medicine12/15/22Team MemberRelationshipSpecialtyStart DateEnd Date Mamie Marina APRN-SUPERINTENDENT STEVEDORING [address] [place] [phone] PCP - GeneralFamily Medicine07/24/24Team MemberRelationshipSpecialtyStart DateEnd Date Mamie Marina MD [facility] [place] [phone] P[facility] - [facility] Medicine12/15/22Team MemberRelationshipSpecialtyStart DateEnd Date Mamie Marina MD [address] [place] [phone] [facility]CP - [facility]12/15/22 Reason for Visit (unrecogniz ed section and content) ReasonCommentsNew PatientReasonCommentsHeartburnGERD, Change in bowel habits, referred by Mamie Marina CNPReasonCommentsMed RefillReasonCommentsWell Women VisitReasonCommentsThyroid ProblemUltrasoundReasonCommentsFollow-up FOR RECORDS PERTAINING TO PATIENTS WHO ARE OR HAVE BEEN ENROLLED IN A CHEMICAL DEPENDENCY/SUBSTANCEABUSE PROGRAM, SOME INFORMATION MAY BE OMITTED. This clinical summary was aggregated from multiple sources. Caution should be exercised in using it in the provision of clinical care. This summary normalizes information from multiple sources, and as a consequence, information in this document may materially change the coding, format and clinical context of patient data. In addition, data may be omitted in some cases. CLINICAL DECISIONS SHOULD BE BASED ON THE PRIMARY CLINICAL RECORDS. [facility]. provides no warranty or guarantee of the accuracy or completeness of information in this document.
--- OUTSIDE RECORDS SUMMARY | 2025-04-20 12:35 | XMS_ITS | Clinical Summary ---
Author Organization [facility] Address [facility] [place] [address] Care Team Providers Care Mimeograph Operator Name Role Phone Unavailable Primary Care Provider Unavailabl e Allergies No known active allergies Medications MedicationSigDispense QuantityRefillsLast FilledStart DateEnd DateStatus esomeprazole (NEXIUM) 20 mg capsule Take 1 capsule by mouth every afternoon.3Active Active Problems No known active problems Social History Tobacco UseTypesPacks/DayYears UsedDateSmoking Tobacco: Never Assessed CommentsUnknownSex and Gender InformationValueDate RecordedSex Assigned at Not on fileLegal QsqOnmehb36/17/2022 1:00 PM EDTGender IdentityNot on fileSexual OrientationNot on file Plan of Treatment DateTypeDepartmentCare Team (Latest Contact Info)Buksophzfev90/14/2026 9:30 AM ESTOffice Visit OPHT Ophthalmology [address] [address] Lisandra Meade MD [facility] [place] [address] Diagnostics, [facility] [address] [id number] [facility] MaintenanceDue DateLast DoneCommentsAnxiety Screening 01/08/2004Depression Nwztwcxru57/24/2004HIV Xfjypntfg06/24/2004Hepatitis C Esjygznfx74/24/2004Cervical Cancer Vkgbmhhlv20/24/2007HPV Vaccine (1 - 3-dose SCDM series)2013Covid-19 Vaccine (2024- season)2025Influenza Vaccine (#1)51, 03/14/2019, 02/14/2019, Additional history existsDTaP,Tdap,Td Vaccine (7 - Td or Tdap)/, 10/26/1997, 01/30/1991, Additional history existsHepatitis B LfxwwdiPnnpmbyeb97/15/1999, 12/18/1997, 11/15/1997 Insurance
--- OUTSIDE RECORDS SUMMARY | 2025-04-20 12:35 | XMS_ITS | Clinical Summary ---
Author Organization [facility] tem Address [id number] [address] [place] [address] Care Team Providers Care Hand Tapper Name Role Phone Mamie Marina APRN-DRYWALL METAL STUD WORKER Primary Care Provider [phone] Allergies No known active allergies Medications MedicationSigDispense QuantityRefillsLast FilledStart DateEnd DateStatus pantoprazole (PROTONIX) 40 mg EC tablet Take 1 tablet (40 mg total) by mouth in the morning and at bedtime. 60 tablet 5Active levothyroxine (SYNTHROID, LEVOTHROID) 25 MCG tablet Indications:Rubén's thyroiditisTake 1 tablet (25 mcg total) by mouth in the morning. 90 tablet 5Active Active Problems ProblemNoted DateDiagnosed DateHashimoto's ujrrmhrsgky30/22/2024Nontoxic nodular zaydqx3804/07/2024Two vessel umbilical cord12/28/2019Acquired hypothyroidism 03/24/2018 Overview (03/24/2018): Takes synthroid Infertility, joimda5011/04/2017 Encounters DateTypeDepartmentCare LsirZfgtpuvwbzv24/29/2025Results Follow-Up [facility] Adult Endocrinology, A Department of [facility] [address] [address] Margaret Hector MD Comprehensive metabolic panel, Folate, Vitamin B12, Additional followed-up results: 510/29/2025Results Follow-Up [facility] Adult Endocrinology, A Department of [address] [address] Margaret Hector MD TSH, T4, free, T3, free03/12/2025Orders Only [facility] Adult Endocrinology, A Department of [address] [address] Zoila Pederson MA Rubén's udwcgcrbyrl56/27/2025Orders Only [facility] Adult Endocrinology, A Department of [address] [address] External, Scanning Provider 02/20/2025 11:10 AM EDTAncillary Procedure [facility] Adult Endocr[facility]ology, A Department of [address] [phone] 02/20/2025 11:00 AM EDTOffice Ultrasound [facility] Adult Endocrinology, A Department of [address] [phone] Margaret Hector MD Nontoxic nodular goiter (Primary Dx); Rubén's jcsrwomidij64/07/1310Mcnhrx08/29/2025 3:33 PM EDT - 02/12/2025 11:59 PM EDTHospital Encounter [facility] [address] [place] [address] Speech disturbance, unspecified type Discharge Disposition: Home02/12/2025Travelfrom Last 3 Months Immunizations ImmunizationAdministration DatesNext DueRabies - Im Fibroblast Jitsxiy5203/06/2021 Rabies Immune Ltyudcij48/20/6520Gkxg42/21/2021 Family History Medical HistoryRelationNameCommentsDiabetesFatherRon SnyderHigh Cholesterol FatherRon SnyderDiabetesMaternal GrandfatherBob WardDiabetesMaternal Grandmother Anne Marie Tawnya Known ProblemsMotherDiabetesPaternal GrandfatherBob SnyderDiabetes Paternal GrandmotherRelationNameStatusCommentsFatherRon SnyderAliveMaternal GrandfatherBob WardMaternal GrandmotherSandy BakerMotherAlivePaternal GrandfatherBob SnyderPaternal Grandmother Social History Tobacco UseTypesPacks/DayYears UsedDateSmoking Tobacco: NeverSmokeless Tobacco: Never Tobacco Cessation:Counseling Given: Not Answered Alcohol UseStandard Drinks/WeekCommentsNot Currently0 (1 standard drink = 0.6 oz pure alcohol)1 beer monthChildcareAnswerDate EpzfbgmlCedghbbukPbcrghw38/12/2019 EmploymentAnswerDate RgjzungaKoxkcanxbhEyijzcb55/12/2019Hunger ScreeningAnswer Date RecordedWithin the past 12 months we worried whether our food would run out before we got money to buy more.Never True02/20/2025Within the past 12 months the food we bought just didn't last and we didn't have money to get more.Never True02/20/2025Purpose - LifeAnswerDate RecordedPurpose and direction in life Xwqdbcy09/11/2021CommentsNoSex and Gender InformationValueDate Recorded Sex Assigned at BirthNot on fileLegal RjyLzmkwf54/06/2015 11:31 AM EDTGender IdentityNot on fileSexual OrientationNot on file Last Filed Vital Signs Vital SignReadingTime TakenCommentsBlood Kftzryky776/8802/20/2025 10:57 AM EDT Cniyz710802/20/2025 10:57 AM XTMXgafvvsxydh19.9 ??C (98.5 ??F)07/24/2024 9:07 AM EDTRespiratory Uktt934707/24/2024 10:43 AM EDTOxygen Ysugmtpeno75%07/24/2024 10:43 AM EDTInhaled Oxygen Concentration--Egetif50.2 kg (176 lb 14.4 oz)02/20/2025 10:57 AM GAHCqxkmh304.4 cm (5')02/20/2025 10:57 AM EDTBody Mass Index34.55 02/20/2025 10:57 AM EDT Plan of Treatment DateTypeDepartmentCare Team (Latest Contact Info)Rguezuggbml47/08/2026 8:00 AM EDTOffice Visit [facility], A Department of [facility] [address] [facility] [address] [place] [address] Margaret Hector MD [address] [facility] [place] [address] Health MaintenanceDue DateLast DoneCommentsDepression Bageyiifk53/24/1998Adult BMI Follow Up Plan01/08/2004Influenza Artdtvc61, 03/14/2019, 02/18/2018Adult BMI Kfyetubxk46Tobacco Xhuidoepn97/07/2026 02/20/2025Pap Smear8/11/2024, 03/09/2016DTaP,Tdap and Td Vaccines (7 - Td or Tdap)/, 10/26/1997, 01/30/1991, Additional history exists Medical Devices Not on file Procedures Procedure NamePriorityDate/TimeAssociated DiagnosisCommentsUS AMB THYROID W/WO AKRTYOCnrkkev72/07/2025 11:05 AM EDT Nontoxic nodular goiter T3, FFVIGufviyk34/07/2025 Rubén's thyroiditis T4, WMIWSwzcefb62/07/2025 Rubén's thyroiditis YWIUqdocbq97/07/2025 Rubén's thyroiditis MR BRAIN W WO NEVQFibwmnk07/29/2025 4:37 PM EDT Speech disturbance, unspecified type HIGH RISK HPV W/PLXAHsdkxgr87/24/2016 12:00 PM EDT from Last 3 Months or Most Recently Relevant to Health Maintenance Results * Ultrasound thyroid w/wo biopsy (02/20/2025 11:05 AM EDT)Anatomical Region LateralityModalityUltrasoundSpecimen (Source)Anatomical Location / Laterality Collection Method / VolumeCollection TimeReceived Time Narrative 02/20/2025 11:15 AM EDT Ultrasound Examination of the Neck with Description of Thyroid Nodules: Procedure: ??US SOFT TISS HEAD NECK Reason for Exam: ??History of nodular goiter Comparison: ??None Technique: ??Real time sonography of the thyroid gland performed Right lobe: Measuring 3.83 x 1.30 x 2.0 cm Left lobe: Measuring 3.85 x 1.30 x 1.64 cm Thyroid Parenchyma: ??Heterogeneous with minimally increased vascularity without any discrete nodules ASSESSMENT AND PLAN: ?? Minimally enlarged thyroid without any discrete nodules. Recommendations: No need for future ultrasounds unless clinically indicated. This note is dictated with the use of M*Modal.Please note that this dictation was completed with computer voice recognition software. ??Quite often unanticipated grammatical, syntax, homophones, and other interpretive errors are inadvertently transcribed by the computer software. ??Please disregard these errors. ??Please excuse any errors that have escaped final proofreading. Authorizing ProviderResult TypeResult Pantera Hector [facility] IMG ORDERABLESFinal Result * T3, free (02/20/2025)Specimen (Source)Anatomical Location / Laterality Collection Method / VolumeCollection TimeReceived TimeBloodVenous blood / Qmabouk3402/20/2025 Narrative Authorizing ProviderResult TypeResult Pantera Hector [facility] BLOOD ORDERABLESFinal ResultPerforming OrganizationAddressCity/State/ZIP CodePhone Number MANUALLY TRANSCRIBED RESULTS * TSH (02/20/2025)Specimen (Source)Anatomical Location / LateralityCollection Method / VolumeCollection TimeReceived TimeBloodVenous blood / Unknown 02/20/2025 Narrative Authorizing ProviderResult TypeResult StatusMargaret Hector [facility] BLOOD ORDERABLESFinal ResultPerforming OrganizationAddressCity/State/ZIP CodePhone Number MANUALLY TRANSCRIBED RESULTS * T4, free (02/20/2025)Specimen (Source)Anatomical Location / Laterality Collection Method / VolumeCollection TimeReceived TimeBloodVenous blood / Twilthu2702/20/2025 Narrative Authorizing ProviderResult TypeResult Pantera Hassanetty [facility] BLOOD ORDERABLESFinal ResultPerforming OrganizationAddressCity/State/ZIP CodePhone Number MANUALLY TRANSCRIBED RESULTS * MR brain with and without contrast (02/12/2025 4:37 PM EDT)Anatomical Region LateralityModalityNeuro, Head, Head and Neck, Neuro CoveraN/AMagnetic ResonanceSpecimen (Source)Anatomical Location / LateralityCollection Method / VolumeCollection TimeReceived Time02/15/2025 5:01 PM EDT Narrative 02/15/2025 5:04 PM EDT HISTORY: A 40-year-old female with a history of the speech abnormality and blurred vision in the right eye. TECHNIQUE: ??Multiplanar and multisequence MRI examination of brain is performed without and with intravenous contrast administration. COMPARISON: ??None available . FINDINGS: ??The ventricular system is normal in size and [...] and mastoid air cells are clear. IMPRESSION: ??Unremarkable MRI of brain without and with intravenous contrast. Finalized by Blake Mathias MD on 02/15/2025 5:04 PM Procedure Note Blake Mathias MD - 02/15/2025 HISTORY: A 40-year-old female with a history of the speech abnormalityand blurred vision in the right eye. TECHNIQUE: Multiplanar and multisequence MRI examination of brain isperformed without and with intravenous contrast administration. COMPARISON: None available . FINDINGS: The ventricular system is normal in size and configuration.There is normal differentiation of tabor and white matters. Diffusion-weighted study demonstrates no evidence of restricted diffusionto suggest acute or subacute age of infarction. There is no evidence of intracranial mass, hemorrhage or acutepathology. The cerebellum and brainstem are unremarkable. No mass effect, midline shift of the structures or extra-axial fluidcollections are noted. Postcontrast examination reveals no abnormal meningeal or parenchymal enhancement. Both distal internal carotid and vertebrobasilar arteries are patent.Dural venous sinuses are patent. Visualized paranasal sinuses and mastoid air cells are clear. IMPRESSION: Unremarkable MRI of brain without and with intravenouscontrast. Finalized by Blake Mathias MD on 02/15/2025 5:04 PM Authorizing ProviderResult TypeResult StatusAnn-Marie Coles PAIM[facility] MRI ORDERABLES Final Result * High risk HPV w/austin (03/09/2016 12:00 PM EDT)ComponentValueRef RangeTest MethodAnalysis TimePerformed AtPathologist SignatureHpv specimen typeThinPrep 03/13/2016 6:32 PM EDTSUNQUESTHpv 01TamzcmlhYuficsem75/02/2016 7:31 AM EDT [facility] LABORATORYHpv 06UmizeaetPheeaxto09/02/2016 7:31 AM [facility] LABORATORYOther high risk hpvNegativeNegative 03/18/2016 7:31 AM [facility] LABORATORYComment: HPV types 31,33,35,39,45,52,56,58,59,66 and 68 DNA were undetectable. Specimen (Source)Anatomical Location / LateralityCollection Method / Volume Collection TimeReceived Time03/09/2016 12:00 PM EDT1 6:31 PM EDT Narrative Authorizing ProviderResult TypeResult StatusMeana maria Tony SUPERVISOR SCRAP PREPARATION-CNMLAB BLOOD ORDERABLESFinal ResultPerforming OrganizationAddressCity/State/ZIP CodePhone Number [facility] [address] [place] [address], [place] SUNQUEST from Last 3 Months or Most Recently Relevant to Health Maintenance Insurance Care Teams Team MemberRelationsKaiser Permanente Medical CenterpecialtyStart DateEnd Date Mamie Mraina APRN-DANIEL [address] [place] [address] PCP - [facility] Medicine07/24/24
== END 2025-04-20 12:31 | disposition home or self-care (01) ==
LOC: PST 12:32
PROVIDERS: Visit Provider Obstetrics & Gynecology
DX: Z01.818 Encounter for other preprocedural examination (principal); R10.20 Pelvic and perineal pain unspecified side; R93.89 Abnormal findings on diagnostic imaging of other specified body structures

== ENCOUNTER 2025-05-03 08:35 | Day surgery (SDC) | payer OTHER, SELFPAY ==
[2025-04-20 12:54] VITALS: BP 114/66; PULSE 66; TEMP 36.2; O2SAT 99; BMI 35.4
[2025-05-03] VITALS (14 sets, daily range): BP systolic 97–108; BP diastolic 61–68; PULSE 58–90; TEMP 36.5; O2SAT 93–100; BMI 35.4
[2025-05-03 08:43] LABS: Hematocrit 40.2 % (36.0-48.0); Hemoglobin 13.2 g/dL (12.0-16.0); Immature Granulocytes Abs Auto 0.03 10^3/uL (0.00-0.03); Immature Granulocytes Pct Auto 0.4 % (0.0-0.5); Lymphocytes Absolute Auto 2.1 10^3/uL (1.2-3.8); Mean Corpuscular HGB Conc 32.8 g/dL (29.9-35.2); Mean Corpuscular Hemoglobin 28.9 pg (26.7-34.0); Mean Corpuscular Volume 88.2 fL (81.0-99.0); Platelet Count 297 10^3/uL (150-450); Red Blood Count 4.56 10^6/uL (4.20-5.40); White Blood Count 6.8 10^3/uL (4.0-11.0)
--- OUTSIDE RECORDS SUMMARY | 2025-05-03 08:44 | XMS_ITS | Clinical Summary ---
Author Organization [facility] tem Address [id number] [address] [place] [address] Care Team Providers Care Sheet Catcher Name Role Phone Mamie Marina APRN-ASSOCIATE BUYER Primary Care Provider [phone] Allergies No known active allergies Medications MedicationSigDispense QuantityRefillsLast FilledStart DateEnd DateStatus pantoprazole (PROTONIX) 40 mg EC tablet Take 1 tablet (40 mg total) by mouth in the morning and at bedtime. 60 tablet 5Active levothyroxine (SYNTHROID, LEVOTHROID) 25 MCG tablet Indications:Rubén's thyroiditisTake 1 tablet (25 mcg total) by mouth in the morning. 90 tablet 5Active Active Problems ProblemNoted DateDiagnosed DateHashimoto's fzvxqcijtqd23/22/2024Nontoxic nodular wrvjii2504/07/2024Two vessel umbilical cord12/28/2019Acquired hypothyroidism 03/24/2018 Overview (03/24/2018): Takes synthroid Infertility, koypxx4111/04/2017 Encounters DateTypeDepartmentCare GtfvUdkqkxugadi80/29/2025Results Follow-Up [facility] Adult Endocrinology, A Department of [facility] [address] [address] Margaret Hector MD Comprehensive metabolic panel, Folate, Vitamin B12, Additional followed-up results: 510/29/2025Results Follow-Up [facility] Adult Endocrinology, A Department of [address] [address] Margaret Hector MD TSH, T4, free, T3, free03/12/2025Orders Only [facility] Adult Endocrinology, A Department of [address] [address] Zoila Pederson MA Rubén's dvhgwwpbqus73/27/2025Orders Only [facility] Adult Endocrinology, A Department of [address] [address] External, Scanning Provider 02/20/2025 11:10 AM EDTAncillary Procedure [facility] Adult Endocrinology, A Department of [address] [phone] 02/20/2025 11:00 AM EDTOffice Ultrasound [facility] Adult Endocrinology, A Department of [address] [phone] Margaret Hector MD Nontoxic nodular goiter (Primary Dx); Rubén's rlfaqstmcxt96/07/5027Lmceya20/29/2025 3:33 PM EDT - 02/12/2025 11:59 PM EDTHospital Encounter [facility] - [facility] Imaging [address] [place] [address] Speech disturbance, unspecified type Discharge Disposition: Home02/12/2025Travelfrom Last 3 Months Immunizations ImmunizationAdministration DatesNext DueRabies - Im Fibroblast Dfirewu6903/06/2021 Rabies Immune Iftbdygg26/20/9916Xfij74/21/2021 Family History Medical HistoryRelationNameCommentsDiabetesFatherRon SnyderHigh Cholesterol FatherRon SnyderDiabetesMaternal GrandfatherBob WardDiabetesMaternal Grandmother Anne Marie Tawnya Known ProblemsMotherDiabetesPaternal GrandfatherBob SnyderDiabetes Paternal GrandmotherRelationNameStatusCommentsFatherRon SnyderAliveMaternal GrandfatherBob WardMaternal GrandmotherSandy BakerMotherAlivePaternal GrandfatherBob SnyderPaternal Grandmother Social History Tobacco UseTypesPacks/DayYears UsedDateSmoking Tobacco: NeverSmokeless Tobacco: Never Tobacco Cessation:Counseling Given: Not Answered Alcohol UseStandard Drinks/WeekCommentsNot Currently0 (1 standard drink = 0.6 oz pure alcohol)1 beer monthChildcareAnswerDate JxvsspaeHindalnnqGxrcumk53/12/2019 EmploymentAnswerDate VvhyqsafNgabkjutnbHtqyjit23/12/2019Hunger ScreeningAnswer Date RecordedWithin the past 12 months we worried whether our food would run out before we got money to buy more.Never True02/20/2025Within the past 12 months the food we bought just didn't last and we didn't have money to get more.Never True02/20/2025Purpose - LifeAnswerDate RecordedPurpose and direction in life Omtpzah75/11/2021CommentsNoSex and Gender InformationValueDate Recorded Sex Assigned at BirthNot on fileLegal VvoFjmdre96/06/2015 11:31 AM EDTGender IdentityNot on fileSexual OrientationNot on file Last Filed Vital Signs Vital SignReadingTime TakenCommentsBlood Irlpnpcc187/8802/20/2025 10:57 AM EDT Rzylv884702/20/2025 10:57 AM XRYVxorssktbqh50.9 ??C (98.5 ??F)07/24/2024 9:07 AM EDTRespiratory Xtks375007/24/2024 10:43 AM EDTOxygen Ruefpstzwq83%07/24/2024 10:43 AM EDTInhaled Oxygen Concentration--Abthyj24.2 kg (176 lb 14.4 oz)02/20/2025 10:57 AM DQCJnxfwi251.4 cm (5')02/20/2025 10:57 AM EDTBody Mass Index34.55 02/20/2025 10:57 AM EDT Plan of Treatment DateTypeDepartmentCare Team (Latest Contact Info)Qsqtzcofszt61/08/2026 8:00 AM EDTOffice Visit [facility], A Department of [facility] [address] [facility] [address] [place] [address] Margaret Hector MD [address] [facility] [place] [address] Health MaintenanceDue DateLast DoneCommentsDepression Ailbpfanq69/24/1998Adult BMI Follow Up Plan01/08/2004Influenza Bbmwlyj55, 02/18/2018 Adult BMI Peaxqrqra92Tobacco Gfolvvqfk11Pap Smear, 03/09/2016DTaP,Tdap and Td Vaccines (7 - Td or Tdap) , 10/26/1997, 01/30/1991, Additional history exists Medical Devices Not on file Procedures Procedure NamePriorityDate/TimeAssociated DiagnosisCommentsUS AMB THYROID W/WO IYBXIQQytjrhu19/07/2025 11:05 AM EDT Nontoxic nodular goiter T3, FOZAGrgsppk42/07/2025 Rubén's thyroiditis T4, UDWOLbfzqpb59/07/2025 Rubén's thyroiditis DPUCudwlqf11/07/2025 Rubén's thyroiditis MR BRAIN W WO HKPUZlnlddl48/29/2025 4:37 PM EDT Speech disturbance, unspecified type HIGH RISK HPV W/WLHINqixmas75/24/2016 12:00 PM EDT from Last 3 Months [...] final proofreading. Authorizing ProviderResult TypeResult Pantera Hector [facility] IMG ORDERABLESFinal Result * T3, free (02/20/2025)Specimen (Source)Anatomical Location / Laterality Collection Method / VolumeCollection TimeReceived TimeBloodVenous blood / Siymrin3602/20/2025 Narrative Authorizing ProviderResult TypeResult StatusMargaret Hector [facility] BLOOD ORDERABLESFinal ResultPerforming OrganizationAddressCity/State/ZIP CodePhone Number MANUALLY TRANSCRIBED RESULTS * TSH (02/20/2025)Specimen (Source)Anatomical Location / LateralityCollection Method / VolumeCollection TimeReceived TimeBloodVenous blood / Unknown 02/20/2025 Narrative Authorizing ProviderResult TypeResult StatusMargaret Hector MDSA[facility]ER[facility] BLOOD ORDERABLESFinal ResultPerforming OrganizationAddressCity/State/ZIP CodePhone Number MANUALLY TRANSCRIBED RESULTS * T4, free (02/20/2025)Specimen (Source)Anatomical Location / Laterality Collection Method / VolumeCollection TimeReceived TimeBloodVenous blood / Lxudtgj9802/20/2025 Narrative Authorizing ProviderResult TypeResult StatusMargaret Hector [facility] BLOOD ORDERABLESFinal ResultPerforming OrganizationAddressCity/State/ZIP CodePhone Number MANUALLY [...] SignatureHpv specimen typeThinPrep 03/13/2016 6:32 PM EDTSUNQUESTHpv 48BchrerxyKulqcnpr88/02/2016 7:31 AM EDT [facility] LABORATORYHpv 44MaiitwotZoiqkyib89/02/2016 7:31 AM [facility] LABORATORYOther high risk hpvNegativeNegative 03/18/2016 7:31 AM [facility] LABORATORYComment: HPV types 31,33,35,39,45,52,56,58,59,66 and 68 DNA were undetectable. Specimen (Source)Anatomical Location / LateralityCollection Method / Volume Collection TimeReceived Time03/09/2016 12:00 PM EDT1 6:31 PM EDT Narrative Authorizing ProviderResult TypeResult Statusana maria Tony PROGRAM DEVELOPMENT MANAGER-CNMLAB BLOOD ORDERABLESFinal ResultPerforming OrganizationAddressCity/State/ZIP CodePhone Number [facility] [address] [place] [address], SUNQUEST from Last 3 Months or Most Recently Relevant to Health Maintenance Insurance Care Teams Team MemberRelationshipSpecialtyStart DateEnd Date Mamie Marina APRN-DANIEL [address] [place] [address] [facility]
--- OUTSIDE RECORDS SUMMARY | 2025-05-03 08:44 | XMS_ITS | Clinical Summary ---
Author Organization [facility] Address [facility] [place] [address] Care Team Providers Care Plastic Process Technician Name Role Phone Unavailable Primary Care Provider Unavailabl e Allergies No known active allergies Medications MedicationSigDispense QuantityRefillsLast FilledStart DateEnd DateStatus esomeprazole (NEXIUM) 20 mg capsule Take 1 capsule by mouth every afternoon.3Active Active Problems No known active problems Social History Tobacco UseTypesPacks/DayYears UsedDateSmoking Tobacco: Never Assessed CommentsUnknownSex and Gender InformationValueDate RecordedSex Assigned at Not on fileLegal KzeYnqsso66/17/2022 1:00 PM EDTGender IdentityNot on fileSexual OrientationNot on file Plan of Treatment DateTypeDepartmentCare Team (Latest Contact Info)Mklmnsrauxn70/14/2026 9:30 AM ESTOffice Visit [facility] [address] [address] Lisandra Meade MD [facility] [place] [address] Diagnostics, [facility] [address] [id number] [facility] MaintenanceDue DateLast DoneCommentsAnxiety Screening 01/08/2004Depression Bqhsbkkxn19/24/2004HIV Xctjzzidp21/24/2004Hepatitis C Jiaqjwoik65/24/2004Cervical Cancer Ttlqohcoz46/24/2007HPV Vaccine (1 - 3-dose SCDM series)2013Covid-19 Vaccine (2024- season)2025Influenza Vaccine (#1)51, 03/14/2019, 02/14/2019, Additional history existsDTaP,Tdap,Td Vaccine (7 - Td or Tdap)/, 10/26/1997, 01/30/1991, Additional history existsHepatitis B YuiytwxQwtfphkwj90/15/1999, 12/18/1997, 11/15/1997 Insurance
--- OUTSIDE RECORDS SUMMARY | 2025-05-03 08:44 | XMS_ITS | Clinical Summary ---
Author Organization [facility] Address [address] [place] [address] Care Team Providers Care Platen Press Operator Name Role Phone Mamie Marina MD Primary Care Provider [phone] Allergies No known active allergies Medications MedicationSigDispense QuantityRefillsLast FilledStart DateEnd DateStatus NexIUM [address] capsule 20 mg.12/08/2022ctive levothyroxine (Synthroid, Levoxyl) 25 MCG tablet Take 25 mcg by mouth in the morning.04/07/2024ctive Active Problems ProblemNoted DateDiagnosed DatePelvic pain in hsxgof0703/19/2025 Encounters DateTypeDepartmentCare UodrKcrjolaadje48/02/2025bstract [facility] [place] [address] Dutch Mishra DO 04/05/2025 10:40 [place] [address] Dutch Mishra DO Pre-op examination; Pelvic pain in female; Thickened rrqmrvlrzki69/20/2025amboo [place] [address] Dutch Mishra DO 03/19/2025 3:50 PM [place] [address] Dutch Mishra, Pelvic pain in wcwaoa0703/19/2025amboo flowsheet [facility] [address] [place] [address] Dutch Mishra DO 03/06/2025 8:00 AM EDTAncillary Procedure [facility] [address] [place] [address] Pelvic pain in nllpwe3602/07/2025Telephone [facility] [address] [place] [address] Dutch Mishra DO from Last 3 Months Family History Medical HistoryRelationNameCommentsGrowth hormone deficiencyBrotheryounger brotherAsthmaChildDiabetesFatherRonHypertensionFatherRonDiabetesMaternal GrandfatherBobDiabetesMaternal GrandmotherSandyHypertensionMaternal Grandmother SandyAllergic rhinitisMotherDiabetesPaternal GrandfatherBob SHeart disease Paternal GrandfatherBob FAnybrrwyVxbbJqczjdAytfwkvfGwwtbjy0OzjyxTedppxHas Maternal GrandfatherBobMaternal GrandmotherSandyMotherPaternal GrandfatherBob S Social History Tobacco UseTypesPacks/DayYears UsedDateSmoking Tobacco: NeverSmokeless Tobacco: Never Tobacco Cessation:Counseling Given: Not Answered Alcohol UseStandard Drinks/WeekCommentsYes1 (1 standard drink = 0.6 oz pure alcohol)Caffeine intake: noneCommentsNoSex and Gender InformationValue Date RecordedSex Assigned at XgvgrXkrues36/31/2023 2:37 PM EDTLegal SexFemale 07/29/2022 7:36 PM EDTGender YzrnsaozAdddzd05/31/2023 2:37 PM EDTSexual OrientationNot on file Last Filed Vital Signs Vital SignReadingTime TakenCommentsBlood Hjnksdsr437/6004/05/2025 10:37 AM EST Pulse--Temperature--Respiratory Rate--Oxygen Saturation--Inhaled Oxygen Concentration--Idnlli88.2 kg (179 lb)04/05/2025 10:37 AM EQSPdnsjz012.4 cm (5') 12/20/2023 11:33 AM EDTBody Mass Index34.9608 11:33 AM EDT Plan of Treatment DateTypeDepartmentCare Team (Latest Contact Info)Oexhlvkzayc80/29/2025 9:30 AM ESTOffice Visit [facility] [address] [place] [id number] Maya Pablo, STUDENT ASSISTANT [address] [place] [address] 12/24/2025 9:00 AM EDTProcedure Visit [facility] [address] [place] [address] Dutch Mishra, DO [address] [place] [address] Procedures Procedure NamePriorityDate/TimeAssociated DiagnosisCommentsUS PELVIC COMPLETE W/ LNYibqmvx94/21/2025 8:23 AM EDT Pelvic pain in female [...] Morgan MD Authorizing ProviderResult TypeResult StatusCorey Tad [facility] PROCEDURESFinal Result from Last 3 Months Insurance Care Teams Team MemberRelationshipSpecialtyStart DateEnd Date Mamie Marina MD [address] [place] [address] PCP - GeneralFamily Medicine12/15/22
--- NOTE | 2025-05-03 10:56 | P.ON_ITS ---
Brief Operative Note Date of procedure: 05/03/25 Pre-op diagnosis general: pelvic pain, menorrhagia, dyspareunia dysmenorrhea Post-op diagnosis: same as pre-op Procedure: NAME OF PROCEDURE: [ D&c hysteroscopy with myosure, diagnostic laparoscopy] PROCEDURE: The patient was taken back to the Operating Room where she was prepped and draped in normal sterile fashion after being placed under general anesthesia without difficulty. She was also placed in the dorsal lithotomy position. A weighted speculum was placed in the patient?s vagina. The anterior lip of the cervix was identified and grasped with a single tooth tenaculum. The patient?s uterus was then sounded roughly to [? 8] cm. The patient was then gently dilated using Hegar dilators. The hysteroscope was passed through the patient?s cervix into the uterus. Both ostia were identified. fluffy appearing endometrium. No gross evidence of malignancy, no gross evidence of polyps or fibroids. The myosure apparatus was placed through the scope, The myosure was engaged and endometrial curretting were removed along with endometrial polyp, The hysteroscope was then removed from the uterus. The endometrial curettings were sent out to pathology. The single tooth tenaculum was then removed from the patient's anterior lip of the cervix where excellent hemostasis was noted. All instruments were removed from the patient?s vagina.A sponge stick was placed into the patient's vagina. Attention was turned to the patient's abdomen, where a small umbilical incision was made. The fascia was tented using Allyn clamps and the fascia was entered sharply. Confirmation of intraabdominal placement of the 10 mm port was confirmed under direct visualization using a laparoscope. The patient's abdomen was then insufflated using CO2 gas with approximately 4 liters. A second port was placed left laterally, this was done under direct visualization with a 5 mm port. Survey of the patient's abdomen demonstrated normal liver and gallbladder. Survey of the patient's pelvic anatomy demonstrated normal appearing rt and lt ovary and tubes as well as normal appearing uterus. No endometrial implants could be noted, no evidence of any pelvic disease was seen, normal appearing pelvic cavity. All instruments were removed from the patient's abdomen. The patient's abdomen was deinsufflated of CO2 gas. The patient tolerated the procedure well. Sponge stick was removed from the patient's vagina. The patient's infraumbilical fascia was closed using #0 Vicryl on a GI needle. The patient's skin was closed laterally and infraumbilically using 4-0 Vicryl. The patient tolerated the procedure well. Sponge, lap and needle counts were correct x 2. The patient was taken to Recovery Room in stable condition. please note monopolar scissors was used for lysis of adhesions Anesthesia: SUELLEN Surgeon: Dutch Mishra Dry Paste Supervisor: Kailee Hernandez Estimated blood loss (mL): 5 Pathology: other (endometrial currettings and polyp) Condition: stable Disposition: PACU
== END 2025-05-03 13:40 | disposition home or self-care (01) ==
LOC: SURGOUT 08:36
PROVIDERS: Visit Provider Obstetrics & Gynecology
PROC: (CPT 840; principal; 2025-05-03 10:00)
DX: R10.20 Pelvic and perineal pain unspecified side (principal); R93.89 Abnormal findings on diagnostic imaging of other specified body structures; N92.0 Excessive and frequent menstruation with regular cycle; N94.10 Unspecified dyspareunia; N94.6 Dysmenorrhea, unspecified; N84.0 Polyp of corpus uteri; Z98.51 Tubal ligation status; E03.9 Hypothyroidism, unspecified
CPT/HCPCS: 49320; 58558; 36415; 84702; 85025; J0131; J1100; J1885; J2003; J2250; J2371; J2405; J2704; J3010